=== PATIENT | female | born 1955 | race Caucasian/White ===

== ENCOUNTER 2023-10-03 12:20 | Emergency (ER) | payer OTHER, MEDICARE, MEDICAID, SELFPAY ==
[2023-10-03 12:23] VITALS: BP 186/101; PULSE 102; RESP 17; TEMP 37.2; O2SAT 95
--- NOTE | 2023-10-03 12:59 | ED.GENADULT ---
HPI - General Adult General Chief complaint: Urogenital-Female Stated complaint: urinary sx, lethargic Time Seen by Provider: 10/03/23 12:32 History of Present Illness HPI narrative: Patient just got a new purewick on Friday, and she hasn't had any complaints per her hospice winding inspector and tester; her winding inspector and tester does not believe there is anything acutely medically wrong with her and she has been at baseline. Related Data Allergies Allergy/AdvReac Type Severity Reaction Status Date / Time No Known Allergies Allergy Unverified 07/11/12 10:55 Review of Systems Review of Systems: CONST: No fever. HEENT: No sore throat C/V: No chest pain RESP: No cough GI: No abdominal pain : Dysuria. M/S: No joint pain. SKIN: No rash. NEURO: [No headache or focal numbness or weakness] PSYCH: [No depression] Exam Narrative: EXAMINATION OF ORGAN SYSTEMS/BODY AREAS: Constitutional: Vital signs per nursing GENERAL:[No acute distress, non-toxic appearing.] HEAD: Normal with no signs of head trauma. EYES: EOMI, conjunctiva normal ENT: Hearing grossly intact LUNGS: Nonlabored breathing. HEART: [Regular rate and rhythm] ABD: [Soft], [nontender to palpation] EXT: Normal range of motion SKIN: [No rashes or lesions.] NEURO: [Alert and oriented x 3. No gross focal sensory or strength deficits.] PSYCH: Normal affect Course Vital Signs Vital signs: Vital Signs Temperature 98.9 F 10/03/23 12:23 Pulse Rate 102 H 10/03/23 12:23 Respiratory Rate 17 10/03/23 12:23 Blood Pressure 186/101 H 10/03/23 12:23 Pulse Oximetry 95 10/03/23 12:23 Oxygen Delivery Room Air 10/03/23 12:23 Temperature 98.9 F 10/03/23 12:23 Pulse Rate 90 10/03/23 14:09 Respiratory Rate 12 10/03/23 14:09 Blood Pressure 145/78 H 10/03/23 14:09 Pulse Oximetry 97 10/03/23 14:09 Oxygen Delivery Room Air 10/03/23 12:23 Medical Decision Making [facility] Narrative Medical decision making narrative: 68-year-old female presenting with dysuria, she denies any other symptoms, she is well-appearing on exam, abdomen soft nontender. I discussed this with her winding inspector and tester after test and treat for any UTI and likely send her home and she is agreeable to this. Urinalysis consistent with large amount of wbc's, will start her on antibiotics. Stable for discharge back home. Vital Signs Vital Signs: Vital Signs Temperature 98.9 F 10/03/23 12:23 Pulse Rate 102 H 10/03/23 12:23 Respiratory Rate 17 10/03/23 12:23 Blood Pressure 186/101 H 10/03/23 12:23 Pulse Oximetry 95 10/03/23 12:23 Oxygen Delivery Room Air 10/03/23 12:23 Temperature 98.9 F 10/03/23 12:23 Pulse Rate 90 10/03/23 14:09 Respiratory Rate 12 10/03/23 14:09 Blood Pressure 145/78 H 10/03/23 14:09 Pulse Oximetry 97 10/03/23 14:09 Oxygen Delivery Room Air 10/03/23 12:23 Lab Data Labs: Lab Results 10/03/23 Range/Units 12:36 Urine Color Yellow (Yellow) Urine Appearance Clear (Clear) Urine pH 5.0 (5.0-9.0) Ur Specific [place] 1.012 (1.001-1.035) Urine Protein 1+ H (Negative) mg/dL Urine Glucose (UA) Negative (Negative) mg/dL Urine Ketones Trace H (Negative) mg/dL Ur Blood (Man) 2+ H (Negative) Urine Nitrate Negative (Negative) Urine Bilirubin Negative (Negative) Urine Urobilinogen 1.0 (<2.0) mg/dL Leukocyte Esterase Rfl 1+ H (Negative) BECKIE/UL Urine RBC 3-5 H (0-2) /hpf Urine WBC 21-50 H (0-3) /hpf Urine WBC Clumps Present H (None) /HPF Ur Squamous Epith Cells Occasional (Few) /hpf Urine Bacteria None seen /hpf Urine Casts 0-2 Urine Characteristics Cloudy Urine Characteristics Cloudy Discharge Plan Discharge Clinical Impression: Urinary tract infection Patient Disposition: Home, Self-Care Condition: Stable Instructions: Antibiotic Form, Dysuri
[2023-10-03 13:17] LABS: Appearance Urine Clear (Clear); Bacteria Urine None Seen /hpf; Bilirubin Urine Negative (Negative); Blood Urine 2+ (Negative); Color Urine Yellow (Yellow); Glucose Urine UA Negative (Negative); Ketones Urine Trace mg/dL (Negative); Leukocyte Esterase Ur 1+ LEU/UL (Negative); Nitrate Urine Negative (Negative); Non Pathogenic Casts 0-2; Protein Urine 1+ mg/dL (Negative); Specific Grav Ur 1.012 (1.001-1.035); Squamous Epithelial Cell Urine Occasional /hpf (Few); WBC Clumps Urine Present /HPF; WBC Urine 21-50 /hpf (0-3)
[2023-10-03 13:22] LABS: Add Urine Microscopic? YES
[2023-10-03 14:09] VITALS: BP 145/78; PULSE 90; RESP 12; O2SAT 97
== END 2023-10-03 14:30 | disposition hospice, home (50) ==
PROVIDERS: Emergency Provider Emergency Medicine; PCP Internal Medicine Infectious Disease
DX: N39.0 Urinary tract infection, site not specified (principal); Z86.73 Personal history of transient ischemic attack (TIA), and cerebral infarction without residual deficits; Z74.01 Bed confinement status
CPT/HCPCS: 81001; 87077; 87086; 87088; 87181; 99283

== ENCOUNTER 2023-10-04 02:04 | Emergency (ER) | payer OTHER, MEDICARE, MEDICAID, SELFPAY ==
[2023-10-04] VITALS (24 sets, daily range): BP systolic 116–188; BP diastolic 54–91; PULSE 74–98; RESP 9–20; TEMP 36.9; O2SAT 96–98
--- NOTE | ~2023-10-04 | XR_ITS ---
XR chest 1V portable DATE: 10/04/2023 04:14 INDICATION: Shortness of breath TECHNIQUE: Portable upright AP chest on 10/04/2023 at 0411 hours COMPARISON: 07/17/2012 two-view chest FINDINGS: Heart size appears borderline. Is aortic arch calcification. No hilar or mediastinal enlarg ement. No pulmonary infiltrate or consolidation, pleural effusion or pulmonary vascular congestion or pneumo thorax. Osteopenia. IMPRESSION: Borderline heart size Aortic atherosclerosis No active pulmonary disease Osteopenia Reviewed, dictated and finalized at location A.
--- NOTE | 2023-10-04 03:23 | ED.GENADULT ---
HPI - General Adult General Chief complaint: Unspecified Stated complaint: generalized weakness Time Seen by Provider: 10/04/23 03:08 Source: patient Limitations: no limitations History of Present Illness HPI narrative: 68 yo female presents with complaint of generalized weakness. She told triage that she does not feel safe at home and couldn't take her medications, though she might fall out of bed. She does admit she has not fallen but felt like she might to me. Upon entering room she is complaining of her immaculate degeneration . She states I can't breathe and is requesting an inhaler and trazodone. She states she has an inhaler at home already but unknown what underlying respiratory condition. Denies being out but requesting another albuterol inhaler. States she is on hospice but unknown diagnosis. Says has been on hospice for several weeks and has a physician through them and an RN visits a few times a week. She is supposed to have home health care arriving at 9am to help her administer her medications. Patient was seen in the ED earlier today and diagnosed with a UTI and discharged home with course of antibiotics. Related Data Allergies Allergy/AdvReac Type Severity Reaction Status Date / Time No Known Allergies Allergy Unverified 07/11/12 10:55 Exam Narrative: GENERAL: well-nourished, and in no acute distress. Hirsuit HEAD: Normocephalic, atraumatic. EYES: Non injected, non icteric ENT: Nares clear, no rhinorrhea or epistaxis. NECK: Supple. CHEST: Clear to auscultation. Speaking in full sentences. NO wheezes, crackles. No respiratory distress. HEART: Regular rate and rhythm. . ABDOMEN: Soft, nondistended. EXTREMITIES: No edema. SKIN: Warm, dry, no rash. NEURO: No focal deficits. Alert and oriented . PSYCH: Normal mood and affect. Course Vital Signs Vital signs: Vital Signs Temperature 98.5 F 10/04/23 02:02 Pulse Rate 98 10/04/23 02:02 Respiratory Rate 16 10/04/23 02:02 Blood Pressure 188/91 H 10/04/23 02:02 Pulse Oximetry 96 10/04/23 02:02 Oxygen Delivery Room Air 10/04/23 02:02 Temperature 98.5 F 10/04/23 02:02 Pulse Rate 77 10/04/23 08:00 Respiratory Rate 9 L 10/04/23 08:00 Blood Pressure 136/57 L 10/04/23 07:31 Pulse Oximetry 97 10/04/23 07:31 Oxygen Delivery Room Air 10/04/23 02:02 Medical Decision Making MDM Narrative Medical decision making narrative: 68 yo female presents with complaint of generalized weakness. She told triage that she does not feel safe at home and couldn't take her medications, though she might fall out of bed. She does admit she has not fallen but felt like she might to me. Upon entering room she is complaining of her immaculate degeneration . She states I can't breathe and is requesting an inhaler and trazodone. She states she has an inhaler at home already but unknown what underlying respiratory condition. Denies being out but requesting another albuterol inhaler. States she is on hospice but unknown diagnosis. Says has been on hospice for several weeks and has a physician through them and an RN visits a few times a week. She is supposed to have home health care arriving at 9am to help her administer her medications. She was seen in the ED earlier today and diagnosed with UTI; discharged home. In the ED she is afebrile with VS notable for hypertension. Work up largely unremarkable. I did give patient a dose of trazodone though she tells RN that it smaller than her home dose. Mild SUBHASH versus CKD as baseline Cr unknown. Given 1L IV fluid which should also help mildly elevated CPK (though not elevated to a degree concerning for rhabdomyolysis). When reassessed, she is more somnolent than previously but does state she would want to get home to meet with home health care so they can help her take her medications including her new antibiotic for UTI. Although unclear why patient needs an alterol inhaler as I don't know a diagnosis, rayshawn goss
[2023-10-04 03:32] LABS: Basophils Percent Auto 0.8 % (0.2-1.2); Eosinophils Absolute Auto 0.3 K/mm3 (0-0.3); Eosinophils Percent Auto 5.3 % (0-4.4); Hematocrit 45.5 % (37.0-47.0); Hemoglobin 14.7 g/dL (12.0-15.0); Immature Granulocyte Absolute 0.02 K/mm3 (0.00-0.031); Immature Granulocyte Percent A 0.4 % (0-0.5); Lymphocytes Absolute Auto 1.24 K/mm3 (0.9-3.2); Lymphocytes Percent Auto 24.5 % (18.3-44.2); Mean Corpuscular HGB Conc 32.3 g/dl (32-36); Mean Corpuscular Hemoglobin 31.1 pg (26-34); Mean Corpuscular Volume 96.2 fl (80-100); Mean Platelet Volume 11.5 fl (7.4-10.4); Monocytes Absolute Auto 0.4 K/mm3 (0.1-0.6); Monocytes Percent Auto 7.5 % (2.6-8.5); Neutrophils Absolute Auto 3.1 K/mm3 (1.3-6.7); Neutrophils Percent Auto 61.5 % (45.5-73.1); Platelet Count Result 238 k/mm3 (150-375); Red Blood Count 4.73 M/mm3 (4.2-5.4); Red Cell Distribution Width 12.7 % (11.5-14.5); White Blood Count 5.1 K/mm3 (4.5-10.0)
[2023-10-04 03:39] LABS: Alanine Aminotransferase 41 U/L (6-35); Albumin Level 4.3 g/dL (3.5-5.1); Alkaline Phosphatase 79 U/L (38-126); Anion Gap 9 mmol/L (4-12); Aspartate Amino Transferase 48 U/L (14-36); Bilirubin,Total 0.8 mg/dL (0.2-1.3); Blood Urea Nitrogen 23 mg/dL (7-17); Calcium 10.7 mg/dL (8.4-10.2); Carbon Dioxide 27 mmol/L (22-30); Chloride 105 mmol/L (98-107); Creatine Kinase 432 U/L (30-135); Estimated CRCL calculation 39 ml/min; Estimated Glomerular Filt Rate 41; Glucose 134 mg/dL (65-110); Magnesium 1.9 mg/dL (1.6-2.3); Potassium 3.4 mmol/L (3.4-5.0); Sodium 141 mmol/L (137-145)
[2023-10-04] MEDS: ACETAMINOPHEN 500 MG TABLET 1000 MG PO (03:56)
[2023-10-04 04:20] LABS: Influenza A QL RT-PCR Negative (Negative); Influenza B QL RT-PCR Negative (Negative); RSV RNA, RT-PCR Negative (Negative); SARS-CoV-2 RNA PCR Negative (Negative)
[2023-10-04] MEDS: traZODone HCL 25 MG TABLET PO (04:48)
[2023-10-04] MEDS: SODIUM CHLORIDE 0.9% IV 1,000 ML 999 ML IV CONT (06:09)
== END 2023-10-04 08:35 | disposition hospice, home (50) ==
PROVIDERS: Emergency Provider Student in an Organized Health Care Education/Training Program; PCP Internal Medicine Infectious Disease
DX: N17.9 Acute kidney failure, unspecified (principal); R79.89 Other specified abnormal findings of blood chemistry; R53.1 Weakness; N39.0 Urinary tract infection, site not specified; Z79.51 Long term (current) use of inhaled steroids; Z20.822 Contact with and (suspected) exposure to COVID-19
CPT/HCPCS: 36415; 71045; 80053; 82550; 83735; 85025; 87637; 96360; 99284; A9270; J7030

== ENCOUNTER 2024-11-30 02:09 | Inpatient (IN) | payer MEDICARE, MEDICAID, SELFPAY ==
[2024-11-30] VITALS (24 sets, daily range): BP systolic 88–151; BP diastolic 41–92; PULSE 69–87; RESP 10–20; TEMP 36.4–37.2; O2SAT 94–100; BMI 34.4
--- NOTE | ~2024-11-30 | XR_ITS ---
MODIFIED ESOPHAGRAM HISTORY: Dysphagia. TECHNIQUE: Modified barium esophagram was performed on 11/30/2024. I administered fluoroscopy and perf ormed the exam with speech pathologist. Patient was seated for lateral fluoroscopic imaging for berhane stion of thin liquids, pudding, solids and quantified amounts, followed by thin liquids in uncontroll ed amounts. This was recorded on tape. A single fluoroscopic spot image was also recorded. The DAP fo r this procedure was 3.1 Gycm2. The amount of fluoroscopy time used during this procedure was 3.5 min utes. FINDINGS: Oral stage: Reduced lingual movement.. Pharyngeal stage: Adequate function with vallecular residue but no laryngeal penetration or aspiratio n. Cervical/esophageal stage: Adequate function. IMPRESSION: Patient tolerated regular consistency oral feedings in the upright position. Please efrain elate with speech pathologist findings and specific feeding recommendations. Reviewed, dictated and finalized at location A. IMPRESSION: Patient tolerated regular consistency oral feedings in the upright position. Please correlate with speech pathologist findings and specific feedi ng recommendations.
--- NOTE | ~2024-11-30 | CT_ITS ---
CT of the Abdomen and Pelvis: Indication: Rectal bleeding, abdominal pain Technique: 2.5 mm axial scans were obtained through the abdomen and pelvis following intravenous adm inistration of 100 cc of Omnipaque 350. Dose reduction technique was used on this scan by utilizing a utomated exposure control and iterative reconstruction technique. The dose-length product (DLP) was 1 656.71 mGy-cm. Findings: Scans through the lung bases demonstrate a 4 mm right basilar pulmonary nodule (axial imag e 2). There is diffuse hepatic steatosis. Cholecystectomy clips are present. The spleen, pancreas, adrenals and kidneys are within normal limits. There are atherosclerotic calcifications of the aorta. There i s mild ectasia of the infrarenal aorta measuring up to 2. Centimeters in maximum diameter. No lymphad enopathy. Suggestion of mild wall thickening or fatty infiltration of the bowel wall involving the sigmoid colo n and rectum. No bowel obstruction. No abscess or free air. Images through the pelvis are degraded by streak artifact from left hip arthroplasty. Urinary bladder probably unremarkable. No definite pelvic mass seen. No ascites. Impression: Suspected wall thickening or fatty infiltration of bowel wall at the sigmoid colon and rectum. Correl ate for acute or chronic colitis. Diffuse hepatic steatosis. 4 mm right basilar pulmonary nodule, likely benign. Consider one-year follow-up exam for a high-risk patient. Reviewed, dictated and finalized at [facility]. Impression: Suspected wall thickening or fatty infiltration of bowel wall at the sigmoid co juan and rectum. Correlate for acute or chronic colitis. Diffuse hepatic steatosis. 4 mm right basilar pulmonary nodule, likely benign. Consider one-year follow-up exam for a high-risk patient.
--- NOTE | 2024-11-30 02:12 | ECG_ITS ---
Test Date: 2024-11-30 02:15:03 Measurements Intervals [place] Rate: 84 P: 65 DE: 198 QRS: 38 QRSD: 99 T: 39 QT: 358 QTc: 424 Interpretive Statements SINUS RHYTHM LOW QRS VOLTAGE IN PRECORDIAL LEADS [QRS DEFLECTION < 1.0 mV IN CHEST LEADS] No previous ECG available for comparison Electronically Signed On 11-30-2024 14:04:29 CDT by Juan Moran M.D.
--- NOTE | 2024-11-30 02:16 | PC.NURSE ---
pt is bed bound, uses devan lift to assist pt into wheelchair daily if/ when needed.
--- NOTE | 2024-11-30 02:19 | ED.GIBLEED ---
HPI - GI Bleed General Chief complaint: GI Bleed Stated complaint: abd pain bright red bm Time Seen by Provider: 11/30/24 02:14 Source: patient Mode of arrival: EMS Limitations: no limitations History of Present Illness HPI Narrative: Patient presents with report of LLQ abdominal pain and episodes of bright red blood per rectum. No history of anemia recently though states she did require a blood transfusion many years ago with the of her daughter. Pain 8/10 in severity. Resides at longterm for history fo CVA with left sided deficits. On O2 PRN for history of COPD. POC blood sugar EMS 165 who reported BP 154/90. Unknown if she has ever had a colonoscopy. States no history of GI bleed before. Unknown if Anticoagulation/steroid/nsaids. Related Data Home Medications ?Medication ?Instructions ?Recorded ?Confirmed ?Last Taken ?Type albuterol sulfate 90 mcg/actuation 2 inh inhalation QID 11/30/24 11/30/24 Unknown History aerosol inhaler (Ventolin HFA) amlodipine 10 mg tablet 10 mg PO DAILY 11/30/24 11/30/24 Unknown History buspirone 15 mg tablet 15 mg PO .TID 11/30/24 11/30/24 Unknown History docusate sodium 100 mg capsule 100 mg PO DAILY 11/30/24 11/30/24 Unknown History famotidine 20 mg tablet (Pepcid) 20 mg PO Q12H 11/30/24 11/30/24 Unknown History furosemide 40 mg tablet 40 mg PO DAILY 11/30/24 11/30/24 Unknown History gabapentin 600 mg tablet 600 mg PO .TID 11/30/24 11/30/24 Unknown History hydrocodone 5 mg-acetaminophen 325 1 tablet PO Q4-6H 11/30/24 11/30/24 Unknown History mg tablet hydroxyzine pamoate 25 mg capsule 25 mg PO BID PRN anxiety 11/30/24 11/30/24 Unknown History (Vistaril) lisinopril 5 mg tablet 5 mg PO DAILY 11/30/24 11/30/24 Unknown History metoprolol tartrate 50 mg tablet 50 mg PO DAILY 11/30/24 11/30/24 Unknown History oxybutynin chloride 10 mg 10 mg PO DAILY 11/30/24 11/30/24 Unknown History tablet,extended release 24 hr paroxetine HCl 40 mg tablet 40 mg PO DAILY 11/30/24 11/30/24 Unknown History rivaroxaban 20 mg tablet (Xarelto) 20 mg PO DAILY 11/30/24 11/30/24 Unknown History sennosides 8.6 mg capsule (senna) 8.6 mg PO .Q12 11/30/24 11/30/24 Unknown History simvastatin 10 mg tablet 10 mg PO DAILY 11/30/24 11/30/24 Unknown History trazodone 150 mg tablet 75 mg PO HS 11/30/24 11/30/24 Unknown History Allergies Allergy/AdvReac Type Severity Reaction Status Date / Time No Known Allergies Allergy Verified 12/01/24 17:06 [facility], [facility] Past Medical History Medical History Unspecified macular degeneration Chronic shortness of breath Pain, unspecified Neuralgia and neuritis, unspecified Insomnia, unspecified Hemiplegia and hemiparesis following cerebral infarction affecting left non-dominant side Essential (primary) hypertension Constipation, unspecified Chronic atrial fibrillation, unspecified Peripheral vascular disease, unspecified Other specified chronic obstructive pulmonary disease Major depressive disorder, recurrent, mild Hyperlipidemia, unspecified Gastro-esophageal reflux disease without esophagitis Diarrhea, unspecified Anxiety disorder, unspecified Social History Social History Social History: Code Status: DNR (Do Not Resuscitate) per facility documentation Smoking packs per day: 1 Smoking cigarettes per day: 20.0 Years smoked: 51 Smoking pack-years: 51.00 Smoking status: Current every day smoker Tobacco type: cigarettes Alcohol intake: never Substance use: current Substance use type: marijuana Do You Feel Safe in your Home?: Yes Lack of Transportation: No Lack of Food: Never True Current Housing: I Have Housing Concerned About Future Housing: No Difficulty Paying Gas/Electric Bills: No Difficulty Paying for Meds: No Currently Unemployed: No Education: High School Diploma/GED Difficulty w/ Childcare or Family Care: No Additional living arrangements comments: [facility] since 12/12/23 Spiritual care concerns: No Exam Narrative: GENERAL: Well-appearing, well-nourished, and in no acute distress. HEAD: Normocephalic, atraumatic. EYES: Non injected, non icteric. no conjunctival pallor. ENT: Nares clear, no rhinorrhea or epistaxis. Gross auditory acuity intact. NECK: Supple. No meningismus. CHEST: Speaking in full sentences. No respiratory distress. HEART: Regular rate and rhythm. . ABDOMEN: Soft, nondistended. Mild TTP in LLQ. No rigidity or guarding. Not peritoneal. Bedsheets have blood on them. After patient washed up by nursing, DIEGO performed which does not have appreciable stool on glove finger after insertion in rectal vault. EXTREMITIES: Normal range of motion. No lower extremity edema. SKIN: Warm, dry, no rash. NEURO: Alert and oriented. Answering questions. Following commands. Normal speech without aphasia or dysarthria. PSYCH: Normal mood and affect. Course Vital Signs Vital signs: Vital Signs Temperature 99.0 F 11/30/24 02:07 Pulse Rate 84 11/30/24 02:07 Respiratory Rate 20 11/30/24 02:07 Blood Pressure 151/92 H 11/30/24 02:07 Pulse Oximetry 98 11/30/24 02:07 Oxygen Delivery Room Air 11/30/24 02:07 Temperature 97.8 F 12/02/24 05:00 Pulse Rate 89 12/02/24 05:00 Respiratory Rate 16 12/02/24 05:00 Blood Pressure 175/69 H 12/02/24 05:54 Pulse Oximetry 98 12/02/24 05:00 Oxygen Delivery Room Air 12/01/24 18:15 Oxygen Flow Rate 4 12/01/24 17:55 MDM - GI Bleed MDM Narrative Medical decision making narrative: The patient is a 69 year old who comes to the emergency department with rectal bleeding . Staff noted bright red blood per rectum, unknown number of episodes. Bedding has blood on it. Associated abdominal pain but not hematochezia/melena. In the ED they are initially afebrile and hemodynamically stable without tachycardia or hypotension. Based on history and physical, suspect lower GI bleed so will go ahead and order CBC, CMP, coagulation studies, lactate, and type and screen. My differential diagnosis at this time is diverticulosis/diverticulitis versus angiodysplasia versus Meckel's diverticulum. Colon cancer is also possible. Considered ischemic bowel or anal fissure. No diarrhea/hematochezia making IBD/infectious diarrhea unlikely. Possibly hemorrhoids. Medications are reviewed which show the following GI medications: Famotidine, senna, docusate, loperamide. She is also on opiate therapy. In addition she is on Xarelto 20 mg. Thus, possibly medication side effect. Hyperglycemia is without anion gap acidosis. No history of diabetes on facility diagnoses. She also has an elevated creatinine which is otherwise stable from the 1 previously noted although, again, no listed diagnosis of CKD on facility documentation. Notably, patient is not anemic. Anchor Score (predicts readmission risk in patients with acute lower GI bleeding) Based on age, sex, previous lower GI bleed admission, DIEGO findings, HR, SBP, and initial Hgb: 15 points. 77-81?% Probability of safe discharge (absence of rebleeding, blood transfusion, therapeutic intervention, 28 day readmission, or ). Discharge NOT recommended. Consider admission with further workup and resuscitation as necessary. Repeat H/H ordered at 4 hours. It is essentially stable although does represent a 0.9g drop. No more episodes while in the ED but patient still having pain, medication re-dosed. Discussed with Dr. Zachary BURK followed by information technology account manager hospitalist Dr Dinero who accepts admission. Lab Data Attestation: I reviewed the patient's lab results. 12/01/24 06:26 12/01/24 06:26 Labs: Lab Results 11/30/24 11/30/24 Range/Units 02:42 05:47 WBC 11.7 H (4.5-10.0) K/mm3 RBC 4.22 (4.2-5.4) M/mm3 Hgb 12.1 11.2 L (12.0-15.0) g/dL Hct 39.6 36.0 L (37.0-47.0) % MCV 93.8 (80-100) fl MCH 28.7 (26-34) pg MCHC 30.6 L (32-36) g/dl RDW 14.0 (11.5-14.5) % Plt Count 228 (150-375) k/mm3 MPV 11.0 H (7.4-10.4) fl Immature Gran % (Auto) 0.5 (0-0.5) % Neut % (Auto) 77.8 H (45.5-73.1) % Lymph % (Auto) 10.6 L (18.3-44.2) % [place] % (Auto) 6.0 (2.6-8.5) % Eos % (Auto) 4.7 H (0-4.4) % Baso % (Auto) 0.4 (0.2-1.2) % Lymph # (Auto) 1.24 (0.9-3.2) K/mm3 [place] # (Auto) 0.7 H (0.1-0.6) K/mm3 Eos # (Auto) 0.6 H (0-0.3) K/mm3 Baso # (Auto) 0.1 (0.0-0.1) K/mm3 Abs Immat Gran (auto) 0.06 H (0.00-0.031) K/mm3 Absolute Neuts (auto) 9.1 H (1.3-6.7) K/mm3 Absolute Nucleated RBC 0.000 (0.0-0.012) K/mm3 Nucleated RBC % 0.0 (0.0-0.2) % PT 19.4 H (11.1-14.7) Seconds INR 1.6 APTT 48.3 H (22.3-36.8) Seconds Sodium 143 (137-145) mmol/L Potassium 4.4 (3.4-5.0) mmol/L Chloride 106 (98-107) mmol/L Carbon Dioxide 28 (22-30) mmol/L Anion Gap 9 (4-12) mmol/L BUN 30 H (7-17) mg/dL Creatinine 1.42 H (0.7-1.0) mg/dL Estim Creat Clear Calc 38 ml/min Estimated GFR 37 L (59 - ) Glucose 156 H (65-110) mg/dL Lactic Acid 1.3 (0.7-2.0) mmol/L Calcium 9.4 (8.4-10.2) mg/dL Total Bilirubin 0.3 (0.2-1.3) mg/dL AST 34 (14-36) U/L ALT 33 (6-35) U/L Alkaline Phosphatase 131 H (38-126) U/L Total Protein 7.0 (6.3-8.2) g/dL Albumin 4.1 (3.5-5.1) g/dL Blood Type A Positive Antibody Screen Negative Imaging Data Radiologist's impression: Impression: Suspected wall thickening or fatty infiltration of bowel wall at the sigmoid colon and rectum. Correlate for acute or chronic colitis. Diffuse hepatic steatosis. 4 mm right basilar pulmonary nodule, likely benign. Consider one-year follow-up exam for a high-risk patient. ECG Data EKG #1: Attestation: I personally reviewed and interpreted this ECG as follows: ECG completion date: 11/30/24 ECG completion time: 02:15 Interpretation: Normal sinus rhythm at a rate of 84 beats per minute. MA interval 198. QRS 99. QT/QTC 358/399. Good R-wave progression across the precordial leads. No T-wave inversion. Normal axis. Discharge Plan Discharge Clinical Impression: BRBPR (bright red blood per rectum), Leukocytosis, Colitis, Hepatic steatosis, Right lower lobe pulmonary nodule Patient Disposition: Still a Patient Condition: Stable
[2024-11-30] MEDS: SODIUM CHLORIDE 0.9% IV 500 ML 999 ML IV CONT (02:46)
[2024-11-30 02:49] LABS: Basophils Absolute Auto 0.1 K/mm3 (0.0-0.1); Basophils Percent Auto 0.4 % (0.2-1.2); Eosinophils Absolute Auto 0.6 K/mm3 (0-0.3); Eosinophils Percent Auto 4.7 % (0-4.4); Hematocrit 39.6 % (37.0-47.0); Hemoglobin 12.1 g/dL (12.0-15.0); Immature Granulocyte Absolute 0.06 K/mm3 (0.00-0.031); Immature Granulocyte Percent A 0.5 % (0-0.5); Lymphocytes Absolute Auto 1.24 K/mm3 (0.9-3.2); Lymphocytes Percent Auto 10.6 % (18.3-44.2); Mean Corpuscular HGB Conc 30.6 g/dl (32-36); Mean Corpuscular Hemoglobin 28.7 pg (26-34); Mean Corpuscular Volume 93.8 fl (80-100); Monocytes Absolute Auto 0.7 K/mm3 (0.1-0.6); Neutrophils Absolute Auto 9.1 K/mm3 (1.3-6.7); Neutrophils Percent Auto 77.8 % (45.5-73.1); Platelet Count Result 228 k/mm3 (150-375); Red Blood Count 4.22 M/mm3 (4.2-5.4); White Blood Count 11.7 K/mm3 (4.5-10.0)
[2024-11-30 03:01] LABS: Alanine Aminotransferase 33 U/L (6-35); Albumin Level 4.1 g/dL (3.5-5.1); Alkaline Phosphatase 131 U/L (38-126); Anion Gap 9 mmol/L (4-12); Aspartate Amino Transferase 34 U/L (14-36); Bilirubin,Total 0.3 mg/dL (0.2-1.3); Blood Urea Nitrogen 30 mg/dL (7-17); Calcium 9.4 mg/dL (8.4-10.2); Carbon Dioxide 28 mmol/L (22-30); Chloride 106 mmol/L (98-107); Estimated CRCL calculation 38 ml/min; Estimated Glomerular Filt Rate 37; Glucose 156 mg/dL (65-110); INR 1.6; Potassium 4.4 mmol/L (3.4-5.0); Prothrombin Time 19.4 Seconds (11.1-14.7); Sodium 143 mmol/L (137-145)
[2024-11-30 03:02] LABS: Lactic Acid Reflex 1.3 mmol/L (0.7-2.0); Partial Thromboplastin Time 48.3 Seconds (22.3-36.8)
[2024-11-30] MEDS: MORPHINE SULFATE (*CRX) 4 MG/ML INJ IV PUSH (03:10)
--- OUTSIDE RECORDS SUMMARY | 2024-11-30 03:50 | XMS_ITS | CONTINUITY OF CARE DOCUMENT ---
Author Name amy reyes Address Unknown Organization [facility] Address [address] [place] [address] Phone [phone] Care Team Providers Care Fruit Or Nut Grower Name Role Phone Rashi Quesada MD Unavailable [phone] EMETERIO BAUER MD Unavailable [phone] EMETERIO BAUER MD Unavailable [phone] PROBLEMS Condition Status Date Provider Notes Cardiology examination active Roque Kuhn Family History of CVA or Stroke: active Aydin Saldaña Chest pain active Roque Kuhn PVD active Roque Kuhn Tobacco abuse active Roque Kuhn Shortness of breath active Roque Kuhn ENCOUNTERS Date Type Provider Location Encounter Diag nosis - In-person encounter Office Visit Rashi Quesada MD [facility] Cardiology examinationFamily History of CVA or Stroke:Chest painPVDTobacco abuseShortness of breath VITAL SIGNS Date Observation Value Provider Body Mass Index (Ratio) 30.55 kg/m2 Ulisses Kuhn blood pressure, cuff size regular Cy kortney Dior blood pressure, diastolic 82 mm[Hg] Cy kortney Dior blood pressure, systolic 120 mm[Hg] Diamante Dior oxygen saturation, oximetry 97 % Nunu Dior respiratory rate E&M 16 /min Nunu Dior pulse rate 77 /min Nunu garcia height E&M 64 [in_i] Nunu garcia weight E&M 178 [lb_av] Nunu garcia ALLERGIES No Known Drug Allergies HISTORY OF MEDICATION USE Medication Status Instructions Dates Provider Indications Com ments XARELTO 20 MG ORAL TABLET active Take 1 tab daily Nunu Dior TRAZODONE HCL 150 MG ORAL TABLET active take 1 tab daily Nunu Dior TOVIAZ 4 MG ORAL TABLET EXTENDED RELEASE 24 HOUR active take 1 tab daily Nunu Dior TOLTERODINE TARTRATE ER 4 MG ORAL CAPSULE EXTENDED RELEASE 24 HOUR active Take 1 tab daily Nunu Dior SIMVASTATIN 10 MG ORAL TABLET active Take 1 tab daily Nunu Ovi RANITIDINE 150 MAX STRENGTH TABLET active take 1 tab twice a day Nunu Dior PAROXETINE HCL 40 MG ORAL TABLET active Take 1 tab daily Nunu Dior LOSARTAN POTASSIUM 50 MG ORAL TABLET active take 1 tab daily Nunu Dior FENOFIBRATE 145 MG ORAL TABLET active take 1 tab daily Nunu Dior EZETIMIBE 10 MG ORAL TABLET active take 1 tab daily Nunu Ovi ASPIRIN LOW DOSE 81 MG ORAL TABLET DELAYED RELEASE active take 1 tab daily Nunu Dior SOCIAL HISTORY Date Observation Value Provider number of grandchildren Rashi Sy social history E&M S moking History: P zahra currently smokes every day. Dany Sy social history reviewed E&M revi ewed - no changes required Dany Sy number of years as a smoker 50 a Nunu Dior smoking history, total pack/day 1/2 PPD Nunu Dior cigarette use yes Nunu [place] smoking status Current every day smoker C santiago Dior FAMILY HISTORY Family Member Condition Father Family History of Co ronary Artery Disease: Father Family History of Di abetes: Father Family History of CV A or Stroke: INSURANCE PROVIDERS Payer name Policy type / Coverage type [place] red libertarian ID [facility] [employer] (PPO C-SNP) Medicare [id number] [facility] Medicaid 1 [id number] ADVANCE DIRECTIVES Name Date DISCUSSED - NO DECISION MADE TREATMENT PLAN Date Name Performer Electrophysiology Ne w Patient :Will check b/l arterial dopplers. Dany Saldananilay Electrophysiology Ne w Patient :Since she cannot walk far, will check a stress regadenosen and echo. Dany Kerrie Electrophysiology Ne w Patient :The Patient was reencouraged to stop smoking. Will check PFT's Dany Saldanadejasherin Date Name DLCO - 54539 FRC - 80618 FVC - 29426 Complete Echo Arterial Duplex Bi-L ower EX Complete Echo Stress Regadenoson HISTORY OF PROCEDURES Procedure Date Procedure Name Provider Procedure Notes S meaghanus EKG Rashi Quesada MD comp leted
[2024-11-30 06:01] LABS: Hemoglobin 11.2 g/dL (12.0-15.0)
[2024-11-30] MEDS: SODIUM CHLORIDE 0.9% IV 1,000 ML 999 ML IV CONT (07:42)
--- NOTE | 2024-11-30 08:14 | P.CONGI_ITS ---
Assessment and Plan Assessment and plan (1) BRBPR (bright red blood per rectum): Code(s): K62.5 - Hemorrhage of anus and rectum Status: Acute (2) Colitis: Code(s): K52.9 - Noninfective gastroenteritis and colitis, unspecified Status: Acute (3) Lower abdominal pain: Code(s): R10.30 - Lower abdominal pain, unspecified Status: Acute (4) Constipation, unspecified: Qualifiers: Constipation type: slow transit constipation Qualified Code(s): K59.01 - Slow transit constipation Code(s): K59.00 - Constipation, unspecified Status: Acute (5) Dysphagia: Qualifiers: Dysphagia type: esophageal phase Qualified Code(s): R13.19 - Other dysphagia Code(s): R13.10 - Dysphagia, unspecified Status: Acute (6) Hepatic steatosis: Code(s): K76.0 - Fatty (change of) liver, not elsewhere classified Status: Acute Plan 1. BRBPR/colitis/constipation/BLQ abominal pain: Patient states that her last colonoscopy was performed ?a few years ago? at [facility], results unknown. Per patient she was told by care home staff yesterday that she had blood in her stool. She admits to a history of hemorrhoids but states that they have not been problematic recently. According to the patient she only had a 1 time episode of rectal bleeding. She complains of bilateral lower quadrant abdominal pain that is sharp and intermittent in nature and improves with bowel movements, pain started yesterday. CT on admission showed suspected wall thickening in the sigmoid and rectum. Patient states she typically has a bowel movement every 2 days that is formed and not urgent but requires occasional straining. Patient is unable to say if she is taking any medication for constipation. Patient with a history of AFib and states that she was on Xarelto prior to admission, but there is no mention of this in previous documentation and she is on no anticoagulation this admission. DDX: Acute infectious/inflammatory process versus IBD versus hemorrhoid versus polyp versus AVM. * Colonoscopy tomorrow * clear liquids today * NPO after midnight * bowel prep to start this evening, Miralax split prep per instructions 2. Dysphagia: Patient states she has never had an EGD. She admits to dysphagia with solids and pills and occasionally liquids. She states that the swallowing difficulty has been occurring for a few months and she had 1 choking episode with solid food. Patient was unable to provide further details. She admits to occasional reflux but states that ?it gets better when the pharmacy cancer something?. She denies any reflux at this. Denies any nausea or vomiting since admission. DDX: Esophageal ring or stricture versus motility disorder versus EOE versus functional versus neoplasm. * Swallow study ordered * EGD also scheduled if not contraindication noted on swallow study 3. Hepatic steatosis: Recent CT showed hepatic steatosis. LFTs normal except acute mildly elevated alkaline phosphatase at 131. Did have a history of mildly elevated liver transaminase in September of 2023 the transaminases are currently normal. Patient risk factors for hepatic steatosis include BMI 34 and HLD. * Continue to monitor LFT's * further workup can be done as outpatient if needed Thank you very much for allowing me to share in the care of this very nice patient. This report may have been done utilizing a voice recognition system. Attempts have been made to correct errors. However, there may be uncorrected grammatical, spelling, and recognition errors present. GI Consult Note Consult date/time: 11/30/24 08:14 Reason for consult: BRBPR HPI: Herminia Rm is a 69 year old female with past medical-surgical history of hepatic steatosis, insomnia, hemiplegia left side, HTN, AFib on Xarelto, constipation, PVD, depression, HLD, GERD and anxiety. Patient presented to the ER today with complaints of rectal bleeding. GI has been consulted for rectal bleeding. Patient states the she was told yesterday by care home staff that she had BRBPR but patient was unable to provide any further information. She states that she has a Hx of hemorrhoids but denies any issues with them recently. Admits to intermittent constipation but states that she normally has a BM every 2 days that sometimes requires straining, she is unable to say if she is taking medications for her constipation regularly. Admits to nausea and vomiting yesterday but denies any since admission. She is having BLQ pain that she states is sharp in intermittent in nature and improves with BM's, this pain started yesterday. Admits to intermittent dysphagia with solid foods, pills and occasioanly liquids that has been occurring for the past few months and admits to once choking episode with solid food. Denies bloating, odynophagia, uncontrolled reflux, appetite loss, weight loss, early satiety, diarrhea, or melena. She is on Xarelto but denies NSAID or aspirin use. She is a daily 1 ppd smoker and also uses marijuana but denies alcohol use. Family Hx negative for CRC or IBD. ENDOSCOPY HISTORY: EGD: Patient denies prior Hx of EGD COLONOSCOPY: Per patient last colonoscopy a few year ago at [facility], results unknown LABS AND STOOL STUDIES: Labs 11/30/2024: Sodium 143, potassium 4.4, BUN 30, creatinine 1.42, GFR 37 WBC 12, Hgb 11, Hct 36, MCV 94, platelets 228, INR 1.6 Total bilirubin 0.3, AST 34, ALT 33, Alkaline Phos 131, albumin 4.1 IMAGING: CT abd/pelvis w/contrast 11/30/2024: Impression: Suspected wall thickening or fatty infiltration of bowel wall at the sigmoid colon and rectum. Correlate for acute or chronic colitis. Diffuse hepatic steatosis. 4 mm right basilar pulmonary nodule, likely benign. Consider one-year follow-up exam for a high-risk patient. Review of Systems 2 Constitutional: Constitutional: Reports as per HPI ENT: Reports as per HPI Cardiovascular: Cardiovascular: Reports as per HPI, Denies chest pain and Reports dyspnea Respiratory: Respiratory: Denies cough and Reports dyspnea Gastrointestinal: Gastrointestinal: Reports as per HPI Musculoskeletal: Musculoskeletal: Reports as per HPI Integumentary/Breasts: Skin/Breast: Reports as per HPI Psychiatric: Psychiatric: Reports as per HPI Endocrine: Endocrine: Reports no additional endocrine complaints Hematologic/Lymphatic: Hematologic/Lymphatic: Reports no additional hematologic/lymphatic complaints [facility] Past Medical History Medical History (Updated 11/30/24 @ 09:28 by Noa Jones APRN) Unspecified macular degeneration Chronic shortness of breath Pain, unspecified Neuralgia and neuritis, unspecified Insomnia, unspecified Hemiplegia and hemiparesis following cerebral infarction affecting left non- dominant side Essential (primary) hypertension Constipation, unspecified Chronic atrial fibrillation, unspecified Peripheral vascular disease, unspecified Other specified chronic obstructive pulmonary disease Major depressive disorder, recurrent, mild Hyperlipidemia, unspecified Gastro-esophageal reflux disease without esophagitis Diarrhea, unspecified Anxiety disorder, unspecified Social History Social History (Updated 11/30/24 @ 03:03 by Michelle Heard MD) Social History: Code Status: DNR (Do Not Resuscitate) per facility documentation Additional living arrangements comments: [facility] since 12/12/23 Meds Home Medications and Allergies Home Medications ?Medication ?Instructions ?Recorded ?Confirmed ?Type nitrofurantoin macrocrystal 100 mg 100 mg PO Q12H 5 days #10 caps 10/03/23 Rx capsule albuterol sulfate 90 mcg/actuation 1 inh inhalation QID PRN shortness 10/04/23 Rx aerosol inhaler (Ventolin HFA) of breath or wheezing #6.7 grams Allergies Allergy/AdvReac Type Severity Reaction Status Date / Time No Known Allergies Allergy Verified 11/30/24 02:12 Vital Signs Vital Signs - 24 hr 11/30/24 02:07 11/30/24 02:59 11/30/24 03:42 Temperature 99.0 F Pulse Rate 84 84 Respiratory Rate 20 15 Blood Pressure 151/92 H Pulse Oximetry 98 98 96 Oxygen Delivery Room Air 11/30/24 05:11 11/30/24 05:22 11/30/24 05:30 Temperature Pulse Rate 78 78 76 Respiratory Rate 16 12 12 Blood Pressure 88/57 L Pulse Oximetry 98 95 96 Oxygen Delivery 11/30/24 05:32 11/30/24 05:45 11/30/24 05:46 Temperature Pulse Rate 75 76 73 Respiratory Rate 13 11 L 12 Blood Pressure 104/60 91/48 L Pulse Oximetry 97 98 94 Oxygen Delivery 11/30/24 06:00 11/30/24 06:01 11/30/24 06:15 Temperature Pulse Rate 74 72 69 Respiratory Rate 11 L 13 10 L Blood Pressure 102/41 L Pulse Oximetry 94 96 97 Oxygen Delivery 11/30/24 06:16 11/30/24 06:30 11/30/24 06:31 Temperature Pulse Rate 71 73 72 Respiratory Rate 10 L 13 14 Blood Pressure 94/44 L 105/50 L Pulse Oximetry 96 96 97 Oxygen Delivery 11/30/24 06:39 11/30/24 06:45 11/30/24 06:46 Temperature Pulse Rate 72 71 71 Respiratory Rate Blood Pressure 105/50 L 110/59 L Pulse Oximetry Oxygen Delivery 11/30/24 07:42 Temperature Pulse Rate 75 Respiratory Rate 17 Blood Pressure 136/75 Pulse Oximetry 96 Oxygen Delivery Exam 2 Const: General: cooperative, healthy appearing, comfortable, no acute distress and well developed Orientation/consciousness: oriented to person, oriented to place, oriented to time and patient oriented x3 HENMT: Head: normal to inspection, normocephalic and atraumatic Mouth: Yes Normal oral and palatal mucosa present and Yes moist mucous membranes Eyes: General: appearance normal, both eyes and all related structures C onjunctivae: conjunctivae normal Sclera: sclerae normal Pupils: Equal, round and reactive pupils present Neck: Neck: normal visual inspection Chest: Chest palpation & inspection: normal inspection of the chest Resp: Effort & Inspection: normal respiratory effort and able to speak in complete sentences Auscultation: clear to auscultation bilaterally Cardio: Jugular venous distension: no JVD Rate: regular rate Rhythm: r egular rhythm Heart sounds: S1 normal heart sound present and S2 normal heart sound present GI: Inspection: normal to inspection GI Palp: Yes Soft to palpation and Yes No hepatosplenomegaly present Auscultation: normal bowel sounds Rectal Exam: deferred Skin: General skin exam: normal color and no rashes or lesions noted Neuro: General: oriented to person, oriented to place, oriented to time and patient oriented x3 Cranial nerves: Yes Equal, round and reactive pupils present Speech: normal speech Extrem: General: normal to inspection and no clubbing, cyanosis or edema Psych: Appearance: grossly normal and well kempt Affect: normal affect Results Labs 11/30/24 05:47 11/30/24 02:42 Labs: Short CBC 11/30/24 11/30/24 Range/Units 02:42 05:47 WBC 11.7 H (4.5-10.0) K/mm3 Hgb 12.1 11.2 L (12.0-15.0) g/dL Hct 39.6 36.0 L (37.0-47.0) % Plt Count 228 (150-375) k/mm3 BMP 11/30/24 02:42 Sodium 143 Potassium 4.4 Chloride 106 Carbon Dioxide 28 BUN 30 H Creatinine 1.42 H Glucose 156 H Calcium 9.4 Liver Function 11/30/24 Range/Units 02:42 Total Bilirubin 0.3 (0.2-1.3) mg/dL AST 34 (14-36) U/L ALT 33 (6-35) U/L Alkaline Phosphatase 131 H (38-126) U/L Albumin 4.1 (3.5-5.1) g/dL
[2024-11-30] MEDS: ACETAMINOPHEN 325 MG TABLET 650 MG PO (10:15)
--- NOTE | 2024-11-30 11:48 | PCSTNOTE ---
Please refer to the Bedside Swallow Evaluation in the EMR. Please note, silent aspiration cannot be ruled out at bedside.
--- NOTE | 2024-11-30 13:29 | P.HP_ITS ---
H&P: HPI History of Present Illness Date/Time: 11/30/24 13:29 Chief Complaint: Abdominal Pain, Blood in Stool Narrative: 69 y/o F with PMH of hemiplegia/hemiparesis of the left side secondary to CVA, hypertension, chronic AFib on Xarelto, peripheral vascular disease, COPD, hyperlipidemia, anxiety, and GERD presents here with abdominal pain and rectal bleeding. The patient presents here from [facility] via EMS for further evaluation of abdominal pain and rectal bleeding. She reports the longterm staff noted bright red blood per rectum yesterday. She reports accompanying nausea, vomiting, and lower abdominal pain. She describes the abdominal pain as sharp, nonradiating, intermittent, and alleviated by bowel movements. Last bowel movement was 2 days ago. She is currently on Xarelto secondary to chronic AFib. Initial VS at presentation: 99? F, HR 84, R 20, 151/92, and 98% on RA. ED workup showed: WBC 11.7, hemoglobin 12.1, creatinine 1.42 and GFR 37 (near baseline), glucose 156, lactic 1.3. CT of the abdomen/pelvis showed suspected wall thickening or fatty infiltration of bowel wall at the sigmoid colon and rectum, diffuse hepatic steatosis, 4 mm right basilar pulmonary nodule likely benign. Review of Systems Review of Systems: All systems reviewed & are unremarkable except as noted in HPI and below PMFSH Past Medical History Medical History Unspecified macular degeneration Chronic shortness of breath Pain, unspecified Neuralgia and neuritis, unspecified Insomnia, unspecified Hemiplegia and hemiparesis following cerebral infarction affecting left non- dominant side Essential (primary) hypertension Constipation, unspecified Chronic atrial fibrillation, unspecified Peripheral vascular disease, unspecified Other specified chronic obstructive pulmonary disease Major depressive disorder, recurrent, mild Hyperlipidemia, unspecified Gastro-esophageal reflux disease without esophagitis Diarrhea, unspecified Anxiety disorder, unspecified Social History Social History Social History: Code Status: DNR (Do Not Resuscitate) per facility documentation Smoking packs per day: 1 Smoking cigarettes per day: 20.0 Years smoked: 51 Smoking pack-years: 51.00 Smoking status: Current every day smoker Tobacco type: cigarettes Alcohol intake: never Substance use: current Substance use type: marijuana Do You Feel Safe in your Home?: Yes Lack of Transportation: No Lack of Food: Never True Current Housing: I Have Housing Concerned About Future Housing: No Difficulty Paying Gas/Electric Bills: No Difficulty Paying for Meds: No Currently Unemployed: No Education: High School Diploma/GED Difficulty w/ Childcare or Family Care: No Additional living arrangements comments: [facility] since 12/12/23 Spiritual care concerns: No Meds Home Medications and Allergies Home Medications ?Medication ?Instructions ?Recorded ?Confirmed ?Type albuterol sulfate 90 mcg/actuation 2 inh inhalation QID 11/30/24 11/30/24 History aerosol inhaler (Ventolin HFA) amlodipine 10 mg tablet 10 mg PO DAILY 11/30/24 11/30/24 History buspirone 15 mg tablet 15 mg PO .TID 11/30/24 11/30/24 History docusate sodium 100 mg capsule 100 mg PO DAILY 11/30/24 11/30/24 History famotidine 20 mg tablet (Pepcid) 20 mg PO Q12H 11/30/24 11/30/24 History furosemide 40 mg tablet 40 mg PO DAILY 11/30/24 11/30/24 History gabapentin 600 mg tablet 600 mg PO .TID 11/30/24 11/30/24 History hydrocodone 5 mg-acetaminophen 325 1 tablet PO Q4-6H 11/30/24 11/30/24 History mg tablet hydroxyzine pamoate 25 mg capsule 25 mg PO BID PRN anxiety 11/30/24 11/30/24 History (Vistaril) lisinopril 5 mg tablet 5 mg PO DAILY 11/30/24 11/30/24 History metoprolol tartrate 50 mg tablet 50 mg PO DAILY 11/30/24 11/30/24 History oxybutynin chloride 10 mg 10 mg PO DAILY 11/30/24 11/30/24 History tablet,extended release 24 hr paroxetine HCl 40 mg tablet 40 mg PO DAILY 11/30/24 11/30/24 History rivaroxaban 20 mg tablet (Xarelto) 20 mg PO DAILY 11/30/24 11/30/24 History sennosides 8.6 mg capsule (senna) 8.6 mg PO .Q12 11/30/24 11/30/24 History simvastatin 10 mg tablet 10 mg PO DAILY 11/30/24 11/30/24 History trazodone 150 mg tablet 75 mg PO HS 11/30/24 11/30/24 History Allergies Allergy/AdvReac Type Severity Reaction Status Date / Time No Known Allergies Allergy Verified 11/30/24 02:12 Vital Signs Vital Signs - 24 hr 11/30/24 02:07 11/30/24 02:59 11/30/24 03:42 Temperature 99.0 F Pulse Rate 84 84 Respiratory Rate 20 15 Blood Pressure 151/92 H Pulse Oximetry 98 98 96 Oxygen Delivery Room Air 11/30/24 05:11 11/30/24 05:22 11/30/24 05:30 Temperature Pulse Rate 78 78 76 Respiratory Rate 16 12 12 Blood Pressure 88/57 L Pulse Oximetry 98 95 96 Oxygen Delivery 11/30/24 05:32 11/30/24 05:45 11/30/24 05:46 Temperature Pulse Rate 75 76 73 Respiratory Rate 13 11 L 12 Blood Pressure 104/60 91/48 L Pulse Oximetry 97 98 94 Oxygen Delivery 11/30/24 06:00 11/30/24 06:01 11/30/24 06:15 Temperature Pulse Rate 74 72 69 Respiratory Rate 11 L 13 10 L Blood Pressure 102/41 L Pulse Oximetry 94 96 97 Oxygen Delivery 11/30/24 06:16 11/30/24 06:30 11/30/24 06:31 Temperature Pulse Rate 71 73 72 Respiratory Rate 10 L 13 14 Blood Pressure 94/44 L 105/50 L Pulse Oximetry 96 96 97 Oxygen Delivery 11/30/24 06:39 11/30/24 06:45 11/30/24 06:46 Temperature Pulse Rate 72 71 71 Respiratory Rate Blood Pressure 105/50 L 110/59 L Pulse Oximetry Oxygen Delivery 11/30/24 07:42 11/30/24 09:12 11/30/24 11:49 Temperature 99.0 F Pulse Rate 75 87 Respiratory Rate 17 18 Blood Pressure 136/75 136/62 Pulse Oximetry 96 95 Oxygen Delivery Room Air Exam Const: General: comfortable and no acute distress Other: , female, chronically ill-appearing HENMT: Face/Nose/Sinus: Normal nares present Mouth: Yes moist mucous membranes Eyes: General: appearance normal, both eyes and all related structures Sclera: sclerae normal Pupils: Equal, round and reactive pupils present EOM: EOMs intact bilaterally Resp: Effort & Inspection: normal respiratory effort Auscultation: clear to auscultation bilaterally Cardio: Rate: regular rate Rhythm: regular rhythm Other: S1-S2 present without murmur, rub, ectopy GI: Other: Abdomen soft, nondistended, nontender. Normoactive bowel sounds in all quadrants. Skin: General skin exam: normal color and no rashes or lesions noted Wounds: no wounds Neuro: Speech: normal speech Sensory Exam: normal sensation Other: Residual left-sided weakness. A&O x4. Extrem: Other: Edema to left upper extremity and left lower extremity. Psych: Mental Status: mental status grossly normal Affect: normal affect Other: Fair insight and judgment, very pleasant H&P: Results Labs Labs: Short CBC 11/30/24 11/30/24 Range/Units 02:42 05:47 WBC 11.7 H (4.5-10.0) K/mm3 Hgb 12.1 11.2 L (12.0-15.0) g/dL Hct 39.6 36.0 L (37.0-47.0) % Plt Count 228 (150-375) k/mm3 BMP 11/30/24 02:42 Sodium 143 Potassium 4.4 Chloride 106 Carbon Dioxide 28 BUN 30 H Creatinine 1.42 H Glucose 156 H Calcium 9.4 Liver Function 11/30/24 Range/Units 02:42 Total Bilirubin 0.3 (0.2-1.3) mg/dL AST 34 (14-36) U/L ALT 33 (6-35) U/L Alkaline Phosphatase 131 H (38-126) U/L Albumin 4.1 (3.5-5.1) g/dL Assessment and Plan Assessment and plan (1) BRBPR (bright red blood per rectum): Code(s): K62.5 - Hemorrhage of anus and rectum Status: Acute Assessment and Plan: - CT abdomen/pelvis: Suspected wall thickening or fatty infiltration of bowel wall at the sigmoid colon and rectum. Correlate for acute or chronic colitis. Diffuse hepatic steatosis. 4 mm right basilar pulmonary nodule, likely benign. Consider one-year follow- up exam for a high-risk patient. - GI consulted, Robert PINEDA provided the following recs: colonoscopy on 12/01 w/bowel prep this evening clear liquids -> NPO at midnight - no previous colonoscopy on file - trend H/H, transfuse if less than 7 (2) Dysphagia: Qualifiers: Dysphagia type: esophageal phase Qualified Code(s): R13.19 - Other dysphagia Code(s): R13.10 - Dysphagia, unspecified Status: Acute Assessment and Plan: - reported dysphagia to GI, no previous EGD, episodes have been occurring for a few months - GI consulted, rec'd: swallow study and EGD if not contraindicated by findings on swallow study - soft and bite sized diet in interim (3) Hepatic steatosis: Code(s): K76.0 - Fatty (change of) liver, not elsewhere classified Status: Acute Assessment and Plan: - seen on CT - monitor LFTs - further w/u outpatient if needed per GI Plan Diet: Clear liquids, NPO midnight GI Prophylaxis: Famotidine p.o. DVT Prophylaxis: Hold Xarelto, SCDs IV fluids: 2L bolus Lines/Tubes: Peripheral IV Code Status: DNR Quality VTE Prophylaxis VTE prophylaxis: mechanical ordered Hospitalist [facility] Advance Care Plan I have confirmed that the patient's Advanced Care Plan is present, code status is documented, or surrogate decision maker is listed in patient medical record.: Yes Medication Reconciliation I have utilized all available resources to obtain, update and review the patients current medications (includes all prescriptions, OTC, herbals, cannabis, and nutritional supplements).: Yes
[2024-11-30] MEDS: ALBUTEROL SULFATE (*SP) AEROSOL 1 PUFF 2 PUFF INHALATION ×2 (16:10→20:15)
[2024-11-30] MEDS: GABAPENTIN 300 MG CAPSULE 600 MG PO (17:48)
[2024-11-30] MEDS: busPIRone HCL 5 MG TABLET 15 MG PO (17:48)
[2024-11-30] MEDS: polyethylene glycoL 3350 238 GM BOTTLE 119 GM PO (21:00)
[2024-11-30] MEDS: SENNOSIDES 8.6 MG TABLET PO (21:07)
[2024-11-30] MEDS: FAMOTIDINE 20 MG TABLET PO (21:07)
[2024-11-30] MEDS: HYDROcodone/acetaminophen (*CRX) 5-325 MG TABLET 1 TAB PO (21:07)
[2024-11-30] MEDS: traZODone HCL 25 MG TABLET 75 MG PO (21:08)
[2024-12-01] VITALS (12 sets, daily range): BP systolic 103–192; BP diastolic 60–123; PULSE 75–104; RESP 12–22; TEMP 36.5–37.4; O2SAT 95–100
[2024-12-01] MEDS: polyethylene glycoL 3350 238 GM BOTTLE 119 GM PO ×2 (04:39→08:37)
[2024-12-01 06:50] LABS: Basophils Absolute Auto 0.1 K/mm3 (0.0-0.1); Basophils Percent Auto 0.7 % (0.2-1.2); Eosinophils Absolute Auto 0.5 K/mm3 (0-0.3); Hematocrit 35.5 % (37.0-47.0); Hemoglobin 10.8 g/dL (12.0-15.0); Immature Granulocyte Absolute 0.03 K/mm3 (0.00-0.031); Immature Granulocyte Percent A 0.4 % (0-0.5); Lymphocytes Absolute Auto 0.89 K/mm3 (0.9-3.2); Lymphocytes Percent Auto 12.3 % (18.3-44.2); Mean Corpuscular HGB Conc 30.4 g/dl (32-36); Mean Corpuscular Hemoglobin 28.8 pg (26-34); Mean Corpuscular Volume 94.7 fl (80-100); Mean Platelet Volume 10.9 fl (7.4-10.4); Monocytes Absolute Auto 0.5 K/mm3 (0.1-0.6); Monocytes Percent Auto 7.3 % (2.6-8.5); Neutrophils Absolute Auto 5.2 K/mm3 (1.3-6.7); Neutrophils Percent Auto 72.3 % (45.5-73.1); Platelet Count Result 192 k/mm3 (150-375); Red Blood Count 3.75 M/mm3 (4.2-5.4); Red Cell Distribution Width 14.3 % (11.5-14.5); White Blood Count 7.3 K/mm3 (4.5-10.0)
[2024-12-01 07:04] LABS: Alanine Aminotransferase 29 U/L (6-35); Albumin Level 3.8 g/dL (3.5-5.1); Alkaline Phosphatase 108 U/L (38-126); Anion Gap 9 mmol/L (4-12); Aspartate Amino Transferase 34 U/L (14-36); Bilirubin,Total 0.4 mg/dL (0.2-1.3); Blood Urea Nitrogen 19 mg/dL (7-17); Carbon Dioxide 23 mmol/L (22-30); Chloride 108 mmol/L (98-107); Estimated CRCL calculation 44 ml/min; Estimated Glomerular Filt Rate 44; Glucose 165 mg/dL (65-110); Potassium 3.8 mmol/L (3.4-5.0); Sodium 140 mmol/L (137-145)
[2024-12-01] MEDS: ALBUTEROL SULFATE (*SP) AEROSOL 1 PUFF 2 PUFF INHALATION ×3 (07:28→22:00)
--- NOTE | 2024-12-01 16:19 | SUR.PREOP ---
[id number] called pt's nurse Ronna to update her on pt's procedure time. With delays in the schedule and staffing availability patient's procedure will be postponed till later this evening around 730 pm. RN voiced understanding and would update the patient.
--- NOTE | 2024-12-01 17:01 | SUR.PREOP ---
was notified of patients blood pressure. is okay to proceed with procedure
[2024-12-01] MEDS: LACTATED RINGERS 1,000 ML 150 ML IV CONT (17:03)
--- NOTE | 2024-12-01 17:05 | P.PNIM_ITS ---
Progress Note: A&P Assessment and Plan (1) BRBPR (bright red blood per rectum): Code(s): K62.5 - Hemorrhage of anus and rectum Status: Acute Assessment and Plan: - CT abdomen/pelvis: Suspected wall thickening or fatty infiltration of bowel wall at the sigmoid colon and rectum. Correlate for acute or chronic colitis. Diffuse hepatic steatosis. 4 mm right basilar pulmonary nodule, likely benign. Consider one-year follow- up exam for a high-risk patient. - GI consulted, Robert PINEDA provided the following recs: colonoscopy on 12/01 w/bowel prep this evening NPO for procedure today - no previous colonoscopy on file - trend H/H, transfuse if less than 7 (2) Dysphagia: Qualifiers: Dysphagia type: esophageal phase Qualified Code(s): R13.19 - Other dysphagia Code(s): R13.10 - Dysphagia, unspecified Status: Acute Assessment and Plan: - reported dysphagia to GI, no previous EGD, episodes have been occurring for a few months - GI consulted, rec'd: swallow study and EGD if not contraindicated by findings on swallow study - soft and bite sized diet in interim (3) Hepatic steatosis: Code(s): K76.0 - Fatty (change of) liver, not elsewhere classified Status: Acute Assessment and Plan: - seen on CT - monitor LFTs - further w/u outpatient if needed per GI Plan Diet: NPO for colonoscopy GI Prophylaxis: Famotidine p.o. DVT Prophylaxis: Hold Xarelto, SCDs IV fluids: 2L bolus Lines/Tubes: Peripheral IV Code Status: DNR Time Spent With Patient Time: 1700 Subjective Date/time seen: 12/01/24 17:05 Interval history: Anxious about colonscopy. Otherwise feeling ok. No abdominal pain Blood pressure elevated to 192/123 but likely 2/2 anxiety or inaccurate, repeat 143/77 without treatment Blood count trending down overnight Review of Systems Review of Systems: All systems reviewed & are unremarkable except as noted in HPI and below Exam Narrative: General - Awake and alert. No acute distress Eyes - PERRLA, EOM intact ENT - No thrush, No erythema Neck - No noticeable or palpable swelling Lymph Nodes - No lymphadenopathy Cardiovascular - RRR no m/r/g, no JVD Lungs: Clear to auscultation, No wheezing, use of accessory muscles, no crackles Skin - Skin warm and dry, no wounds or rashes Abdomen - Normal bowel sounds, abdomen soft and nontender Extremities - No edema, cyanosis or clubbing Musculoskeletal - 5/5 strength, normal range of motion, no swollen or erythematous joints. Neurological ? Alert and oriented x 3, Left sided paralysis, no sensation, otherwise grossly normal Psych: Normal mood and affect Objective Data Vital Signs Vital Signs: Vital Signs - 24 hr 11/30/24 20:16 11/30/24 21:32 12/01/24 05:27 Temperature 98.4 F 97.8 F Pulse Rate 81 83 Respiratory Rate 16 18 Blood Pressure 149/89 H 174/83 H Pulse Oximetry 100 97 98 Oxygen Delivery Room Air 12/01/24 07:29 12/01/24 08:00 12/01/24 14:00 Temperature Pulse Rate 82 75 Respiratory Rate 12 16 Blood Pressure 161/60 H Pulse Oximetry 100 Oxygen Delivery Room Air 12/01/24 14:57 12/01/24 16:55 12/01/24 17:04 Temperature 97.7 F 99.4 F Pulse Rate 97 103 H Respiratory Rate 16 22 H Blood Pressure 161/86 H 192/123 H 143/77 H Pulse Oximetry 96 98 Oxygen Delivery Room Air Intake/Output Intake/Output: Intake & Output 11/28/24 11/29/24 11/30/24 12/01/24 23:59 23:59 23:59 23:59 Intake Total 620 2000 Output Total 400 450 Balance 220 1550 Meds/Results Medications: Active Medications Generic Name Dose Route Start Last Admin Trade Name Freq PRN Reason Stop Dose Admin Acetaminophen 650 mg 11/30/24 07:28 11/30/24 10:15 Acetaminophen 325 Mg Tablet PO 650 mg Q4H PRN Administration Mild Pain (1-3) or Fever Hydrocodone Bitart/Acetaminophen 1 tab 11/30/24 13:45 11/30/24 21:07 Hydrocodone/Acetaminophen (*Crx) 5-325 Mg Tablet PO 1 tab Q4-6H PRN Administration Pain Rated 4-6 Albuterol 2 puff 11/30/24 16:00 12/01/24 13:59 Albuterol Sulfate (*Sp) Aerosol 1 Puff INHALATION 2 puff QIDRT AGATA Administration Amlodipine Besylate 10 mg 12/01/24 09:00 Amlodipine Besylate 10 Mg Tablet PO DAILY [facility] Buspirone HCl 15 mg 11/30/24 13:45 12/01/24 14:16 Buspirone Hcl 5 Mg Tablet PO Not Given TID [facility] Docusate Sodium 100 mg 12/01/24 09:00 12/01/24 14:15 Docusate Sodium 100 Mg Capsule PO Not Given DAILY [facility] Famotidine 20 mg 11/30/24 21:00 12/01/24 14:15 Famotidine 20 Mg Tablet PO Not Given Q12HR [facility] Furosemide 40 mg 12/01/24 09:00 Furosemide 40 Mg Tablet PO DAILY [facility] Gabapentin 600 mg 11/30/24 17:00 12/01/24 14:16 Gabapentin 300 Mg Capsule PO Not Given TID [facility] Hydroxyzine Pamoate 25 mg 11/30/24 13:44 Hydroxyzine Pamoate 25 Mg Capsule PO BID PRN anxiety Lactated Ringer's 1,000 mls @ 150 mls/hr 12/01/24 17:00 12/01/24 17:03 Lr - Lactated Ringers Iv IV CONT 150 mls/hr .Q6H40M [facility] Administration Lisinopril 5 mg 12/01/24 09:00 Lisinopril 5 Mg Tablet PO DAILY [facility] Metoprolol Tartrate 50 mg 12/01/24 09:00 Metoprolol Tartrate 50 Mg Tab PO DAILY [facility] Ondansetron HCl 4 mg 11/30/24 07:28 Ondansetron Inj 4 Mg/2 Ml Vial IV PUSH Q4H PRN Nausea Oxybutynin Chloride 10 mg 12/01/24 09:00 12/01/24 14:16 Oxybutynin Chloride Xl 5 Mg Tab.Er.24 PO Not Given DAILY [facility] Paroxetine HCl 40 mg 12/01/24 09:00 12/01/24 14:16 Paroxetine 20 Mg Tablet PO Not Given DAILY [facility] Senna 8.6 mg 11/30/24 21:00 12/01/24 14:16 Sennosides 8.6 Mg Tablet PO Not Given Q12HR [facility] Simvastatin 10 mg 12/01/24 09:00 12/01/24 14:16 Simvastatin 10 Mg Tablet PO Not Given DAILY [facility] Trazodone HCl 75 mg 11/30/24 21:00 11/30/24 21:08 Trazodone Hcl 25 Mg Tablet PO 75 mg HS [facility] Administration Radiology Results: ITS Impressions Abdomen/Pelvis CT 11/30/24 06:42 Impression: Suspected wall thickening or fatty infiltration of bowel wall at the sigmoid colon and rectum. Correlate for acute or chronic colitis. Diffuse hepatic steatosis. 4 mm right basilar pulmonary nodule, likely benign. Consider one-year follow-up exam for a high-risk patient. Modified Barium Swallow 11/30/24 12:08 IMPRESSION: Patient tolerated regular consistency oral feedings in the upright position. Please correlate with speech pathologist findings and specific feeding recommendations. Labs Labs: Laboratory Results - last 24 hr 12/01/24 06:26 WBC 7.3 RBC 3.75 L Hgb 10.8 L Hct 35.5 L MCV 94.7 MCH 28.8 MCHC 30.4 L RDW 14.3 Plt Count 192 MPV 10.9 H Immature Gran % (Auto) 0.4 Neut % (Auto) 72.3 Lymph % (Auto) 12.3 L [place] % (Auto) 7.3 Eos % (Auto) 7.0 H Baso % (Auto) 0.7 Lymph # (Auto) 0.89 L [place] # (Auto) 0.5 Eos # (Auto) 0.5 H Baso # (Auto) 0.1 Abs Immat Gran (auto) 0.03 Absolute Neuts (auto) 5.2 Absolute Nucleated RBC 0.000 Nucleated RBC % 0.0 Sodium 140 Potassium 3.8 Chloride 108 H Carbon Dioxide 23 Anion Gap 9 BUN 19 H D Creatinine 1.22 H Estim Creat Clear Calc 44 Estimated GFR 44 L Glucose 165 H Calcium 9.0 Total Bilirubin 0.4 AST 34 ALT 29 Alkaline Phosphatase 108 Total Protein 7.0 Albumin 3.8 Quality VTE Prophylaxis VTE prophylaxis: mechanical ordered Hospitalist [facility] Advance Care Plan I have confirmed that the patient's Advanced Care Plan is present, code status is documented, or surrogate decision maker is listed in patient medical record.: Yes Medication Reconciliation I have utilized all available resources to obtain, update and review the patients current medications (includes all prescriptions, OTC, herbals, ca nnabis, and nutritional supplements).: Yes
--- NOTE | 2024-12-01 17:08 | SUR.PREOP ---
was notified that patient stated took friday when asked when she last took her xarelto. will proceed with procedure
--- NOTE | 2024-12-01 17:23 | P.PNAN_ITS ---
Anes - Initial Pre Proc Eval Procedure: Operation Date: 12/01/24 15:30 Proposed Procedures p Esophagogastroduodenoscopy & Colonoscopy - Sean Sharma MD Date/Time: 12/01/24 17:23 Surgeon: Apple Lee APRN Pre Op Diagnosis: BRBPR/Colitis Patient Data Age: 69 Gender: F Height: 1.63 m Weight: 90.9 kg Last Vital Signs Temp 37.4 C 12/01/24 16:55 Pulse 103 H 12/01/24 16:55 Resp 22 H 12/01/24 16:55 BP 143/77 H 12/01/24 17:04 Pulse Ox 98 12/01/24 16:55 O2 Del Method Room Air 12/01/24 16:55 Allergies Allergy/AdvReac Type Severity Reaction Status Date / Time No Known Allergies Allergy Verified 12/01/24 17:06 Home Medications ?Medication ?Instructions ?Recorded ?Confirmed ?Type albuterol sulfate 90 mcg/actuation 2 inh inhalation QID 11/30/24 11/30/24 History aerosol inhaler (Ventolin HFA) amlodipine 10 mg tablet 10 mg PO DAILY 11/30/24 11/30/24 History buspirone 15 mg tablet 15 mg PO .TID 11/30/24 11/30/24 History docusate sodium 100 mg capsule 100 mg PO DAILY 11/30/24 11/30/24 History famotidine 20 mg tablet (Pepcid) 20 mg PO Q12H 11/30/24 11/30/24 History furosemide 40 mg tablet 40 mg PO DAILY 11/30/24 11/30/24 History gabapentin 600 mg tablet 600 mg PO .TID 11/30/24 11/30/24 History hydrocodone 5 mg-acetaminophen 325 1 tablet PO Q4-6H 11/30/24 11/30/24 History mg tablet hydroxyzine pamoate 25 mg capsule 25 mg PO BID PRN anxiety 11/30/24 11/30/24 His tory (Vistaril) lisinopril 5 mg tablet 5 mg PO DAILY 11/30/24 11/30/24 History metoprolol tartrate 50 mg tablet 50 mg PO DAILY 11/30/24 11/30/24 History oxybutynin chloride 10 mg 10 mg PO DAILY 11/30/24 11/30/24 History tablet,extended release 24 hr paroxetine HCl 40 mg tablet 40 mg PO DAILY 11/30/24 11/30/24 History rivaroxaban 20 mg tablet (Xarelto) 20 mg PO DAILY 11/30/24 11/30/24 History sennosides 8.6 mg capsule (senna) 8.6 mg PO .Q12 11/30/24 11/30/24 History simvastatin 10 mg tablet 10 mg PO DAILY 11/30/24 11/30/24 History trazodone 150 mg tablet 75 mg PO HS 11/30/24 11/30/24 History Laboratory Tests 12/01/24 06:26 WBC 7.3 K/mm3 (4.5-10.0) RBC 3.75 L M/mm3 (4.2-5.4) Hgb 10.8 L g/dL (12.0-15.0) Hct 35.5 L % (37.0-47.0) MCV 94.7 fl (80-100) MCH 28.8 pg (26-34) MCHC 30.4 L g/dl (32-36) RDW 14.3 % (11.5-14.5) Plt Count 192 k/mm3 (150-375) MPV 10.9 H fl (7.4-10.4) Immature Gran % (Auto) 0.4 % (0-0.5) Neut % (Auto) 72.3 % (45.5-73.1) Lymph % (Auto) 12.3 L % (18.3-44.2) Christian % (Auto) 7.3 % (2.6-8.5) Eos % (Auto) 7.0 H % (0-4.4) Baso % (Auto) 0.7 % (0.2-1.2) Lymph # (Auto) 0.89 L K/mm3 (0.9-3.2) Christian # (Auto) 0.5 K/mm3 (0.1-0.6) Eos # (Auto) 0.5 H K/mm3 (0-0.3) Baso # (Auto) 0.1 K/mm3 (0.0-0.1) Abs Immat Gran (auto) 0.03 K/mm3 (0.00-0.031) Absolute Neuts (auto) 5.2 K/mm3 (1.3-6.7) Absolute Nucleated RBC 0.000 K/mm3 (0.0-0.012) Nucleated RBC % 0.0 % (0.0-0.2) Sodium 140 mmol/L (137-145) Potassium 3.8 mmol/L (3.4-5.0) Chloride 108 H mmol/L (98-107) Carbon Dioxide 23 mmol/L (22-30) Anion Gap 9 mmol/L (4-12) BUN 19 H D mg/dL (7-17) Creatinine 1.22 H mg/dL (0.7-1.0) Estim Creat Clear Calc 44 ml/min Estimated GFR 44 L (59 - ) Glucose 165 H mg/dL (65-110) Calcium 9.0 mg/dL (8.4-10.2) Total Bilirubin 0.4 mg/dL (0.2-1.3) AST 34 U/L (14-36) ALT 29 U/L (6-35) Alkaline Phosphatase 108 U/L (38-126) Total Protein 7.0 g/dL (6.3-8.2) Albumin 3.8 g/dL (3.5-5.1) Patient hx anesthesia problems: none Family hx anesthesia problems: none Results Review: All pre-operative results and documents have been reviewed as part of the pre- operative evaluation. [facility] Past Medical History Medical History Unspecified macular degeneration Chronic shortness of breath Pain, unspecified Neuralgia and neuritis, unspecified Insomnia, unspecified Hemiplegia and hemiparesis following cerebral infarction affecting left non- dominant side Essential (primary) hypertension Constipation, unspecified Chronic atrial fibrillation, unspecified Peripheral vascular disease, unspecified Other specified chronic obstructive pulmonary disease Major depressive disorder, recurrent, mild Hyperlipidemia, unspecified Gastro-esophageal reflux disease without esophagitis Diarrhea, unspecified Anxiety disorder, unspecified Social History Social History Social History: Code Status: DNR (Do Not Resuscitate) per facility documentation Smoking packs per day: 1 Smoking cigarettes per day: 20.0 Years smoked: 51 Smoking pack-years: 51.00 Smoking status: Current every day smoker Tobacco type: cigarettes Alcohol intake: never Substance use: current Substance use type: marijuana Do You Feel Safe in your Home?: Yes Lack of Transportation: No Lack of Food: Never True Current Housing: I Have Housing Concerned About Future Housing: No Difficulty Paying Gas/Electric Bills: No Difficulty Paying for Meds: No Currently Unemployed: No Education: High School Diploma/GED Difficulty w/ Childcare or Family Care: No Additional living arrangements comments: [facility] since 12/12/23 Spiritual care concerns: No Anes - Eval Final PreProcedure Day of Procedure 12/01/24 17:23 Patient weight: obese Heart: irregular rhythm Lungs: decreased breath sounds Airway: Mallampati scale class III Neurological: alert and oriented Last oral intake: >/= 8 hours ASA classification: III Emergent: no Anesthetic plan: proceed Anesthesia type and monitoring: general GIVS and standard monitoring Results Review: All pre-operative results and documents have been reviewed as part of the pre- operative evaluation. Informed Consent: The patient's anesthetic plan and its attendant risks and benefits were discussed with the patient/family/POA. Questions were solicited and answers provided to the satisfaction of the patient/family/POA.
--- NOTE | 2024-12-01 17:41 | SUR.OPER ---
Egd END 1736 COLONOSCOPY START 174
--- NOTE | 2024-12-01 17:58 | S_PTH ---
PATIENT: Herminia Rm LOC: [id number] U#:[id number] AGE/SX: 69/F ROOM: 310 RE11/30/[address]: Apple Lee APRN : 1955 BED: 01 DIS: 12/02/2024 SPEC #: [id number] RECD: 12/02/24 07:11 STATUS: ROSE MARIE PENA #: [id number] FRANCIE: 12/01/24 17:[address]: Sean Sharma DEPT: [facility] Surgical RECD BY: Shayla Castillo ENTERED: 12/02/24 07:11 SP TYPE: Surgical OTHR DR: Skye Bennett, M.D. MD Apple Muir APRN Tissues: A - Colon Biopsy Procedures: Hematoxylin and Eosin Stain Gross and Microscopic Level 4
--- NOTE | 2024-12-01 18:03 | P.PNGI_ITS ---
Progress Note: A&P Assessment and Plan (1) Ischemic colitis: Code(s): K55.9 - Vascular disorder of intestine, unspecified Status: Acute Assessment and Plan: See colonoscopy report. Findings compatible with recovering ischemic colitis. The prognosis is good, she can stay overnight and be discharged tomorrow on a regular diet. However, the whole colon was covered with barium and she should return in 1 year for a formal screening colonoscopy. Subjective Date/time seen: 12/01/24 18:03 Objective Data Vital Signs Vital Signs: Vital Signs - 24 hr 11/30/24 20:16 11/30/24 21:32 12/01/24 05:27 Temperature 98.4 F 97.8 F Pulse Rate 81 83 Respiratory Rate 16 18 Blood Pressure 149/89 H 174/83 H Pulse Oximetry 100 97 98 Oxygen Delivery Room Air 12/01/24 07:29 12/01/24 08:00 12/01/24 14:00 Temperature Pulse Rate 82 75 Respiratory Rate 12 16 Blood Pressure 161/60 H Pulse Oximetry 100 Oxygen Delivery Room Air 12/01/24 14:57 12/01/24 16:55 12/01/24 17:04 Temperature 97.7 F 99.4 F Pulse Rate 97 103 H Respiratory Rate 16 22 H Blood Pressure 161/86 H 192/123 H 143/77 H Pulse Oximetry 96 98 Oxygen Delivery Room Air Intake/Output Intake/Output: Intake & Output 11/28/24 11/29/24 11/30/24 12/01/24 23:59 23:59 23:59 23:59 Intake Total 620 2130 Output Total 400 450 Balance 220 1680 Meds/Results Medications: Active Medications Generic Name Dose Route Start Last Admin Trade Name Freq PRN Reason Stop Dose Admin Acetaminophen 650 mg 11/30/24 07:28 11/30/24 10:15 Acetaminophen 325 Mg Tablet PO 650 mg Q4H PRN Administration Mild Pain (1-3) or Fever Hydrocodone Bitart/Acetaminophen 1 tab 11/30/24 13:45 11/30/24 21:07 Hydrocodone/Acetaminophen (*Crx) 5-325 Mg Tablet PO 1 tab Q4-6H PRN Administration Pain Rated 4-6 Albuterol 2 puff 11/30/24 16:00 12/01/24 13:59 Albuterol Sulfate (*Sp) Aerosol 1 Puff INHALATION 2 puff QIDRT AGATA Administration Amlodipine Besylate 10 mg 12/01/24 09:00 Amlodipine Besylate 10 Mg Tablet PO DAILY [facility] Buspirone HCl 15 mg 11/30/24 13:45 12/01/24 14:16 Buspirone Hcl 5 Mg Tablet PO Not Given TID [facility] Docusate Sodium 100 mg 12/01/24 09:00 12/01/24 14:15 Docusate Sodium 100 Mg Capsule PO Not Given DAILY [facility] Famotidine 20 mg 11/30/24 21:00 12/01/24 14:15 Famotidine 20 Mg Tablet PO Not Given Q12HR [facility] Furosemide 40 mg 12/01/24 09:00 Furosemide 40 Mg Tablet PO DAILY [facility] Gabapentin 600 mg 11/30/24 17:00 12/01/24 14:16 Gabapentin 300 Mg Capsule PO Not Given TID [facility] Hydralazine HCl 10 mg 12/01/24 17:07 Hydralazine 10 Mg Tablet PO QID PRN Hypertension Hydroxyzine Pamoate 25 mg 11/30/24 13:44 Hydroxyzine Pamoate 25 Mg Capsule PO BID PRN anxiety Lactated Ringer's 1,000 mls @ 150 mls/hr 12/01/24 17:00 12/01/24 17:55 Lr - Lactated Ringers Iv IV CONT 150 mls/hr .Q6H40M [facility] Infusion Lisinopril 5 mg 12/01/24 09:00 Lisinopril 5 Mg Tablet PO DAILY [facility] Metoprolol Tartrate 50 mg 12/01/24 09:00 Metoprolol Tartrate 50 Mg Tab PO DAILY [facility] Ondansetron HCl 4 mg 11/30/24 07:28 Ondansetron Inj 4 Mg/2 Ml Vial IV PUSH Q4H PRN Nausea Oxybutynin Chloride 10 mg 12/01/24 09:00 12/01/24 14:16 Oxybutynin Chloride Xl 5 Mg Tab.Er.24 PO Not Given DAILY [facility] Paroxetine HCl 40 mg 12/01/24 09:00 12/01/24 14:16 Paroxetine 20 Mg Tablet PO Not Given DAILY [facility] Senna 8.6 mg 11/30/24 21:00 12/01/24 14:16 Sennosides 8.6 Mg Tablet PO Not Given Q12HR [facility] Simvastatin 10 mg 12/01/24 09:00 12/01/24 14:16 Simvastatin 10 Mg Tablet PO Not Given DAILY [facility] Trazodone HCl 75 mg 11/30/24 21:00 11/30/24 21:08 Trazodone Hcl 25 Mg Tablet PO 75 mg HS [facility] Administration Radiology Results: ITS Impressions Abdomen/Pelvis CT 11/30/24 06:42 Impression: Suspected wall thickening or fatty infiltration of bowel wall at the sigmoid colon and rectum. Correlate for acute or chronic colitis. Diffuse hepatic steatosis. 4 mm right basilar pulmonary nodule, likely benign. Consider one-year follow-up exam for a high-risk patient. Modified Barium Swallow 11/30/24 12:08 IMPRESSION: Patient tolerated regular consistency oral feedings in the upright position. Please correlate with speech pathologist findings and specific feeding recommendations. Labs Labs: Laboratory Results - last 24 hr 12/01/24 06:26 WBC 7.3 RBC 3.75 L Hgb 10.8 L Hct 35.5 L MCV 94.7 MCH 28.8 MCHC 30.4 L RDW 14.3 Plt Count 192 MPV 10.9 H Immature Gran % (Auto) 0.4 Neut % (Auto) 72.3 Lymph % (Auto) 12.3 L [place] % (Auto) 7.3 Eos % (Auto) 7.0 H Baso % (Auto) 0.7 Lymph # (Auto) 0.89 L [place] # (Auto) 0.5 Eos # (Auto) 0.5 H Baso # (Auto) 0.1 Abs Immat Gran (auto) 0.03 Absolute Neuts (auto) 5.2 Absolute Nucleated RBC 0.000 Nucleated RBC % 0.0 Sodium 140 Potassium 3.8 Chloride 108 H Carbon Dioxide 23 Anion Gap 9 BUN 19 H D Creatinine 1.22 H Estim Creat Clear Calc 44 Estimated GFR 44 L Glucose 165 H Calcium 9.0 Total Bilirubin 0.4 AST 34 ALT 29 Alkaline Phosphatase 108 Total Protein 7.0 Albumin 3.8
[2024-12-01] MEDS: FAMOTIDINE 20 MG TABLET PO (20:17)
[2024-12-01] MEDS: traZODone HCL 25 MG TABLET 75 MG PO (20:17)
[2024-12-01] MEDS: MELATONIN 5 MG TABLET PO (22:50)
[2024-12-02] VITALS (7 sets, daily range): BP systolic 170–182; BP diastolic 69–78; PULSE 70–89; RESP 16–20; TEMP 36.6–36.9; O2SAT 95–98
[2024-12-02] MEDS: hydrALAZINE 10 MG TABLET PO (04:57)
[2024-12-02] MEDS: amLODIPine BESYLATE 10 MG TABLET PO (08:11)
[2024-12-02] MEDS: FUROSEMIDE 40 MG TABLET PO (08:11)
[2024-12-02] MEDS: METOPROLOL TARTRATE 50 MG TAB PO (08:11)
[2024-12-02] MEDS: PARoxetine 20 MG TABLET 40 MG PO (08:11)
[2024-12-02] MEDS: lisinopriL 10 MG TABLET PO (08:11)
[2024-12-02] MEDS: busPIRone HCL 5 MG TABLET 15 MG PO ×2 (08:11→13:16)
[2024-12-02] MEDS: FAMOTIDINE 20 MG TABLET PO (08:12)
[2024-12-02] MEDS: GABAPENTIN 300 MG CAPSULE 600 MG PO ×2 (08:12→13:16)
[2024-12-02] MEDS: ALBUTEROL SULFATE (*SP) AEROSOL 1 PUFF 2 PUFF INHALATION ×2 (08:32→14:55)
[2024-12-02] MEDS: HYDROcodone/acetaminophen (*CRX) 5-325 MG TABLET 1 TAB PO ×2 (09:56→15:23)
[2024-12-02 09:59] LABS: Basophils Percent Auto 0.6 % (0.2-1.2); Eosinophils Absolute Auto 0.5 K/mm3 (0-0.3); Eosinophils Percent Auto 6.8 % (0-4.4); Hematocrit 37.4 % (37.0-47.0); Hemoglobin 11.6 g/dL (12.0-15.0); Immature Granulocyte Absolute 0.05 K/mm3 (0.00-0.031); Immature Granulocyte Percent A 0.7 % (0-0.5); Lymphocytes Absolute Auto 0.78 K/mm3 (0.9-3.2); Mean Corpuscular Hemoglobin 28.9 pg (26-34); Mean Corpuscular Volume 93.3 fl (80-100); Monocytes Absolute Auto 0.4 K/mm3 (0.1-0.6); Monocytes Percent Auto 5.6 % (2.6-8.5); Neutrophils Absolute Auto 5.4 K/mm3 (1.3-6.7); Neutrophils Percent Auto 75.3 % (45.5-73.1); Platelet Count Result 211 k/mm3 (150-375); Red Blood Count 4.01 M/mm3 (4.2-5.4); White Blood Count 7.1 K/mm3 (4.5-10.0)
--- NOTE | 2024-12-02 10:08 | P.DS_ITS ---
DS: Admitting Diagnosis Discharge Date 12/02/2024 Admitting Diagnosis Abdominal pain and rectal bleeding DS: Discharge Diagnosis Discharge Diagnosis (1) Right lower lobe pulmonary nodule: Code(s): R91.1 - Solitary pulmonary nodule Status: Acute (2) Ischemic colitis: Code(s): K55.9 - Vascular disorder of intestine, unspecified Status: Acute (3) Hepatic steatosis: Code(s): K76.0 - Fatty (change of) liver, not elsewhere classified Status: Acute (4) BRBPR (bright red blood per rectum): Code(s): K62.5 - Hemorrhage of anus and rectum Status: Acute DS: Summary Hospital Course Reason for hospitalization: Copied from [facility] 12/02 69 y/o F with PMH of hemiplegia/hemiparesis of the left side secondary to CVA, hypertension, chronic AFib on Xarelto, peripheral vascular disease, COPD, hyperlipidemia, anxiety, and GERD presents here with abdominal pain and rectal bleeding. The patient presents here from [facility] via EMS for further evaluation of abdominal pain and rectal bleeding. She reports the senior living staff noted bright red blood per rectum yesterday. She reports accompanying nausea, vomiting, and lower abdominal pain. She describes the abdominal pain as sharp, nonradiating, intermittent, and alleviated by bowel movements. Last bowel movement was 2 days ago. She is currently on Xarelto secondary to chronic AFib. Initial VS at presentation: 99? F, HR 84, R 20, 151/92, and 98% on RA. ED workup showed: WBC 11.7, hemoglobin 12.1, creatinine 1.42 and GFR 37 (near baseline), glucose 156, lactic 1.3. CT of the abdomen/pelvis showed suspected wall thickening or fatty infiltration of bowel wall at the sigmoid colon and rectum, diffuse hepatic steatosis, 4 mm right basilar pulmonary nodule likely benign. Hospital Course: BRBPR (bright red blood per rectum): - CT abdomen/pelvis: Suspected wall thickening or fatty infiltration of bowel wall at the sigmoid colon and rectum. Correlate for acute or chronic colitis. Diffuse hepatic steatosis. No previous colonoscopy on file 4 mm right basilar pulmonary nodule, likely benign. Consider one-year follow-up exam for a high-risk patient. - GI consulted, Robert PINEDA provided the following recs: colonoscopy on 12/01 w/bowel prep 12/01 EGD and mucosa was normal. Moderate Schatki's ring at the GE junction, depth 37 cm from the incisors. Hunt bougie dilation was performed. Mild superficial gastritis seen in antrum. Gastritis with erythematous and erosive changes. Normal duodenum. 12/01 Colonoscopy showed moderate localized colitis in the proximal rectosigmoid. Colitis had moderate decreased vascularity edematous friable changes. Compatible with ischemic colitis. Biopsy sent. GI recommended follow-up year for a formal screening colonoscopy. -Follow up labs in a week to follow blood count -Resumed Xarelto. If new evidence of bleeding would need to stop, but overall high risk for stroke Dysphagia: Reported dysphagia to GI, no previous EGD, episodes have been occurring for a few months. GI consulted, rec'd: swallow study and EGD if not contraindicated by findings on swallow study - Resumed diet Hepatic steatosis: Noted on CT. Monitor LFTs outpatient per routine Blood count stable RLL pulmonary nodule Noted on CT. Recommended 1 year follow up Other medical conditions were stable Status at Discharge Cognitive/behavioral status at discharge: A&Ox4 Time Spent with Patient Time attestation: Total time spent providing and/or coordinating discharge services:59 minutes Exam Narrative: General - Awake and alert. No acute distress Eyes - PERRLA, EOM intact ENT - No thrush, No erythema Neck - No noticeable or palpable swelling Lymph Nodes - No lymphadenopathy Cardiovascular - RRR no m/r/g, no JVD Lungs: Clear to auscultation, No wheezing, use of accessory muscles, no crackles Skin - Skin warm and dry, no wounds or rashes Abdomen - Normal bowel sounds, abdomen soft and nontender Extremities - No edema, cyanosis or clubbing Musculoskeletal - 5/5 strength, normal range of motion, no swollen or erythematous joints. Neurological ? Alert and oriented x 3, left sided paralysis Psych: Normal mood and affect DS: Data Data Completed and Pending Pending studies at discharge: Pending at discharge 12/01/24 17:58 Surgical [PTH] Routine Labs on day of discharge: Labs from last 24 hours 12/02/24 09:46 WBC 7.1 RBC 4.01 L Hgb 11.6 L Hct 37.4 MCV 93.3 MCH 28.9 MCHC 31.0 L RDW 14.0 Plt Count 211 MPV 11.0 H Immature Gran % (Auto) 0.7 H Neut % (Auto) 75.3 H Lymph % (Auto) 11.0 L [place] % (Auto) 5.6 Eos % (Auto) 6.8 H Baso % (Auto) 0.6 Lymph # (Auto) 0.78 L [place] # (Auto) 0.4 Eos # (Auto) 0.5 H Baso # (Auto) 0.0 Abs Immat Gran (auto) 0.05 H Absolute Neuts (auto) 5.4 Absolute Nucleated RBC 0.000 Nucleated RBC % 0.0 Sodium Pending Potassium Pending Chloride Pending Carbon Dioxide Pending Anion Gap Pending BUN Pending Creatinine Pending Estim Creat Clear Calc Pending Estimated GFR Pending Glucose Pending Calcium Pending Discharge Plan Discharge Attending physician on discharge: Apple Lee Discharging Clinician: Apple Lee Patient Disposition: Home Activity: no shower Diet: regular Discharge Instructions: Follow up with your PCP in 1-2 weeks. You will need a follow up colonoscopy in 1 year Patient Instructions: Antibiotic Form Patient Language: Luxembourgish Stand Alone Forms: General Discharge Information Follow-up/Referrals: Gisselle,Wilian Cheung [Primary Care Provider] - Sean Sharma MD [Physician] - Call for Appointment ( Colonoscopy, 1 year) Discharge Medications: New lisinopril 10 mg Tablet 10 mg PO DAILY Qty: 30 0RF Continued amlodipine 10 mg tablet 10 mg PO DAILY buspirone 15 mg tablet 15 mg PO .TID furosemide 40 mg tablet 40 mg PO DAILY gabapentin 600 mg tablet 600 mg PO .TID hydrocodone-acetaminophen 5-325 mg tablet 1 tablet PO Q4-6H simvastatin 10 mg tablet 10 mg PO DAILY trazodone 150 mg tablet 75 mg PO HS metoprolol tartrate 50 mg tablet 50 mg PO DAILY paroxetine HCl 40 mg tablet 40 mg PO DAILY Xarelto 20 mg tablet 20 mg PO DAILY famotidine [Pepcid] 20 mg tablet 20 mg PO Q12H senna 8.6 mg capsule 8.6 mg PO .Q12 albuterol sulfate [Ventolin HFA] 90 mcg/actuation HFA aerosol inhaler 2 inh inhalation QID docusate sodium 100 mg capsule 100 mg PO DAILY oxybutynin chloride 10 mg tablet extended release 24hr 10 mg PO DAILY hydroxyzine pamoate [Vistaril] 25 mg capsule 25 mg PO BID PRN (Reason: anxiety) Discontinued lisinopril 5 mg tablet 5 mg PO DAILY Date of admission: 11/30/24 11:39 Primary Care Provider: GisselleSkye Admitting Provider: Gema Dinero Attending physician on admission: Apple Lee Condition: Stable Quality VTE Prophylaxis VTE prophylaxis: mechanical ordered Hospitalist MIPS Heart Failure (Exclusion) Patient has history of Heart Transplant or Left Ventricular Assistive Device?: No IF YES, STOP HERE Heart Failure (Qualifier) Patient has current or prior documentation of LVEF less than or equal to 40%, or mod/servere depressed LVSF?: No IF NO, STOP HERE
[2024-12-02 10:27] LABS: Anion Gap 10 mmol/L (4-12); Blood Urea Nitrogen 11 mg/dL (7-17); Calcium 9.4 mg/dL (8.4-10.2); Carbon Dioxide 25 mmol/L (22-30); Chloride 108 mmol/L (98-107); Estimated CRCL calculation 54 ml/min; Estimated Glomerular Filt Rate 57; Glucose 202 mg/dL (65-110); Potassium 3.8 mmol/L (3.4-5.0); Sodium 143 mmol/L (137-145)
--- NOTE | 2024-12-02 12:27 | P.DS_ITS ---
DS: Admitting Diagnosis Discharge Date 12/02/2024 Admitting Diagnosis BRBPR Hemorrhage DS: Summary Hospital Course Reason for hospitalization: [facility]ied [facility]69 [facility] F with PMH of hemiplegia/hemiparesis of the left side secondary to CVA, hypertension, chronic AFib on Xarelto, peripheral vascular disease, COPD, hyperlipidemia, anxiety, and GERD presents here with abdominal pain and rectal bleeding. The patient presents here from [facility] via EMS for further evaluation of abdominal pain and rectal bleeding. She reports the [place] staff noted bright red blood per rectum yesterday. She reports accompanying nausea, vomiting, and lower abdominal pain. She describes the abdominal pain as sharp, nonradiating, intermittent, and alleviated by bowel movements. Last bowel movement was 2 days ago. She is currently on Xarelto secondary to chronic AFib. Initial VS at presentation: 99? F, HR 84, R 20, 151/92, and 98% on RA. ED workup showed: WBC 11.7, hemoglobin 12.1, creatinine 1.42 and GFR 37 (near baseline), glucose 156, lactic 1.3. CT of the abdomen/pelvis showed suspected wall thickening or fatty infiltration of bowel wall at the sigmoid colon and rectum, diffuse hepatic steatosis, 4 mm right basilar pulmonary nodule likely benign. All insert Status at Discharge Cognitive/behavioral status at discharge: A&Ox4 Time Spent with Patient Time attestation: Total time spent providing and/or coordinating discharge services: 54 minutes Exam Narrative: General - Awake and alert. No acute distress Eyes - PERRLA, EOM intact ENT - No thrush, No erythema Neck - No noticeable or palpable swelling Lymph Nodes - No lymphadenopathy Cardiovascular - RRR no m/r/g, no JVD Lungs: Clear to auscultation, No wheezing, use of accessory muscles, no crackles Skin - Skin warm and dry, no wounds or rashes Abdomen - Normal bowel sounds, abdomen soft and nontender Extremities - No edema, cyanosis or clubbing Musculoskeletal - 5/5 strength, normal range of motion, no swollen or erythematous joints. Neurological ? Alert and oriented x 3, CN 2-12 grossly intact. Psych: Normal mood and affect DS: Data Data Completed and Pending Pending studies at discharge: Pending at discharge 12/01/24 17:58 Surgical [PTH] Routine Labs on day of discharge: Labs from last 24 hours 12/02/24 09:46 WBC 7.1 RBC 4.01 L Hgb 11.6 L Hct 37.4 MCV 93.3 MCH 28.9 MCHC 31.0 L RDW 14.0 Plt Count 211 MPV 11.0 H Immature Gran % (Auto) 0.7 H Neut % (Auto) 75.3 H Lymph % (Auto) 11.0 L [place] % (Auto) 5.6 Eos % (Auto) 6.8 H Baso % (Auto) 0.6 Lymph # (Auto) 0.78 L [place] # (Auto) 0.4 Eos # (Auto) 0.5 H Baso # (Auto) 0.0 Abs Immat Gran (auto) 0.05 H Absolute Neuts (auto) 5.4 Absolute Nucleated RBC 0.000 Nucleated RBC % 0.0 Sodium 143 Potassium 3.8 Chloride 108 H Carbon Dioxide 25 Anion Gap 10 BUN 11 D Creatinine 0.97 Estim Creat Clear Calc 54 Estimated GFR 57 L Glucose 202 H Calcium 9.4 Discharge Plan Discharge Attending physician on discharge: Apple Lee Discharging Clinician: Apple Lee Anticipated Discharge Date/Time: 12/02/24 12:21 Patient Disposition: Home Activity: no shower Diet: regular Discharge Instructions: Follow up with your PCP in 1-2 weeks. Labs in 1 week. You will need a follow up colonoscopy in 1 year Patient Instructions: Antibiotic Form Patient Language: Vietnamese Stand Alone Forms: General Discharge Information Follow-up/Referrals: Gisselle,Wilian Cheung [Primary Care Provider] - Sean Sharma MD [Physician] - Call for Appointment ( Colonoscopy, 1 year) Discharge Medications: New lisinopril 10 mg Tablet 10 mg PO DAILY Qty: 30 0RF Continued amlodipine 10 mg tablet 10 mg PO DAILY buspirone 15 mg tablet 15 mg PO .TID furosemide 40 mg tablet 40 mg PO DAILY gabapentin 600 mg tablet 600 mg PO .TID hydrocodone-acetaminophen 5-325 mg tablet 1 tablet PO Q4-6H simvastatin 10 mg tablet 10 mg PO DAILY trazodone 150 mg tablet 75 mg PO HS metoprolol tartrate 50 mg tablet 50 mg PO DAILY paroxetine HCl 40 mg tablet 40 mg PO DAILY Xarelto 20 mg tablet 20 mg PO DAILY famotidine [Pepcid] 20 mg tablet 20 mg PO Q12H senna 8.6 mg capsule 8.6 mg PO .Q12 albuterol sulfate [Ventolin HFA] 90 mcg/actuation HFA aerosol inhaler 2 inh inhalation QID docusate sodium 100 mg capsule 100 mg PO DAILY oxybutynin chloride 10 mg tablet extended release 24hr 10 mg PO DAILY hydroxyzine pamoate [Vistaril] 25 mg capsule 25 mg PO BID PRN (Reason: anxiety) Discontinued lisinopril 5 mg tablet 5 mg PO DAILY Other Ambulatory Orders: Basic Metabolic Panel (Routine) Timeframe: 1 Week Location: Determined by Patient Ordered By: Apple Lee Complete Blood Count no Diff (Routine) Timeframe: 1 Week Location: Determined by Patient Ordered By: Apple Lee Date of admission: 11/30/24 11:39 Primary Care Provider: GisselleSkye Admitting Provider: Gema Dinero Attending physician on admission: Apple Lee Condition: Stable Hospitalist MIPS Heart Failure (Exclusion) Patient has history of Heart Transplant or Left Ventricular Assistive Device?: No IF YES, STOP HERE Heart Failure (Qualifier) Patient has current or prior documentation of LVEF less than or equal to 40%, or mod/servere depressed LVSF?: No IF NO, STOP HERE
== END 2024-12-02 17:52 | DRG 378 ==
LOC: ANHED 07:30 → ANH3MEDSUR 09:05
PROVIDERS: Internal Medicine Gastroenterology; Student in an Organized Health Care Education/Training Program; Admitting Provider Family Medicine; Emergency Provider Student in an Organized Health Care Education/Training Program; PCP Internal Medicine Infectious Disease; Visit Provider Nurse Practitioner Acute Care
PROC: 0DJ08ZZ Inspection of Upper Intestinal Tract, Via Natural or Artificial Opening Endoscopic (ICD-10-PCS; CPT 45378; principal; 2024-12-01 15:30)
DX: K62.5 Hemorrhage of anus and rectum (principal); I48.20 Chronic atrial fibrillation, unspecified; I69.354 Hemiplegia and hemiparesis following cerebral infarction affecting left non-dominant side; K55.9 Vascular disorder of intestine, unspecified; K22.2 Esophageal obstruction; K52.9 Noninfective gastroenteritis and colitis, unspecified; K21.9 Gastro-esophageal reflux disease without esophagitis; K76.0 Fatty (change of) liver, not elsewhere classified; K59.00 Constipation, unspecified; E78.5 Hyperlipidemia, unspecified; F17.210 Nicotine dependence, cigarettes, uncomplicated; F41.9 Anxiety disorder, unspecified; I10 Essential (primary) hypertension; I73.9 Peripheral vascular disease, unspecified; J44.9 Chronic obstructive pulmonary disease, unspecified; R91.1 Solitary pulmonary nodule; R13.10 Dysphagia, unspecified; Z79.01 Long term (current) use of anticoagulants; Z66 Do not resuscitate
CPT/HCPCS: 36415; 74177; 74230; 80048; 80053; 83605; 85014; 85018; 85025; 85610; 85730; 86850; 86900; 86901; 88305; 92526; 92611; 93005; 94640; 96361; 96374; 96375; 99285; A9270; G0378; J2270; J2704; J7030; J7040; J7120; Q9967